=== PATIENT | female | born 1965 | race Caucasian/White ===

== ENCOUNTER 2021-02-12 07:25 | Outpatient (REF) | payer MEDICAID, SELFPAY ==
--- NOTE | ~2021-02-12 | MM_ITS ---
EXAMINATION: MM SCREENING DIGITAL BREAST TOMOSYNTHESIS, BILATERAL CLINICAL INFORMATION: Screening. Asymptomatic. The lifetime risk of breast cancer based on the Tyrer-Cuzick Model is 13%. COMPARISON: Mammography: February 07, 2020 and studies dating back to July 18, 2011 TECHNIQUE: Digital breast tomosynthesis is performed in both the craniocaudal and mediolateral oblique views along with computer-aided detection (CAD). Synthesized 2D images are generated from the tomosynthesis. Additional left cleavage view performed. FINDINGS: There are scattered areas of fibroglandular density (ACR BI-RADS breast composition Category b). There are no significant masses, abnormal calcifications, or other abnormalities. MM/MM tomosynthesis screening BI IMPRESSION: There are no significant changes from prior study. ASSESSMENT: BI-RADS 1: Negative RECOMMENDATION: Routine annual mammography screening. This patient's information was entered into a reminder system with a target due date for their next mammogram.
== END 2021-02-12 07:26 | disposition home or self-care (01) ==
LOC: HO.MAMMO 07:25
PROVIDERS: PCP Family Medicine; Visit Provider Nurse Practitioner Family
DX: Z12.31 Encounter for screening mammogram for malignant neoplasm of breast (principal)
CPT/HCPCS: 77063; 77067

== ENCOUNTER 2021-03-12 08:38 | Outpatient (REF) | payer MEDICAID, SELFPAY | END 2021-03-12 08:39 | disposition home or self-care (01) | LOC: HO.MAMMO 08:38 | PROVIDERS: Visit Provider Family Medicine | DX: Z13.89 Encounter for screening for other disorder (principal) ==

== ENCOUNTER 2021-04-05 13:22 | Outpatient (REF) | payer MEDICAID, SELFPAY ==
--- NOTE | ~2021-04-05 | MM_ITS ---
EXAMINATION: BONE DENSITOMETRY CLINICAL INDICATION: Screening for osteoporosis. COMPARISON: None (current study represents initial baseline exam). TECHNIQUE: Using a [employer] DXA System (software version: 13.1) manufactured by [email or web address], dual-energy x-ray absorptiometry was performed of the lumbar spine and left hip. The images are of good technical quality. Summary results are attached. FINDINGS: AP SPINE L1-L4: BMD 1.130 g/cm2, Z-score -0.3, T-score -0.4, normal. LEFT FEMUR, NECK: BMD 0.977 g/cm2, Z-score 0.1, T-score -0.4, normal. LEFT FEMUR, TOTAL: BMD 1.034 g/cm2, Z-score 0.4, T-score 0.2, normal. IDENTIFIED RISK FACTORS: Rheumatoid arthritis, anticonvulsants, glucocorticoids (chronic), menopause. HISTORY OF FRACTURE: None listed. MEDICATIONS: Vitamin D. MM/XR DEXA axial skeleton IMPRESSION: 1. DIAGNOSIS: Normal bone density based on the lowest T-score value of -0.4 in the femoral neck and lumbar spine applying World Health Organization criteria. 2. 10-YEAR FRACTURE RISK PREDICTION, FRAX: Major osteoporotic fracture (clinical spine, forearm, hip or shoulder) 10.4%. Hip fracture 0.4%. 3. Treatment Recommendations: NOF guidelines recommend consideration for treatment in postmenopausal women and men age 50 and older presenting with the following: -A hip or vertebral (clinical or morphometric) fracture. -T-score less than or equal to -2.5 at the femoral neck or spine after appropriate evaluation to exclude secondary causes. -Low bone mass at the hip or spine and a 10-year fracture probability by FRAX of greater than or equal to 3% for hip fracture or greater than or equal to 20% for major osteoporotic fracture based on the [place] adapted WHO algorithm. 4. Other Recommendations: All treatment decisions require clinical judgment and consideration of individual patient factors, including patient preferences, comorbidities, previous drug use, risk factors not captured in the FRAX model (e.g. frailty, falls, vitamin D deficiency, increased bone turnover, interval significant decline in bone density) and possible under or overestimation of fracture risk by FRAX. FUTURE SCAN RECOMMENDATION: People with diagnosed cases of osteoporosis or at high risk for fracture should have regular bone mineral density tests. For patients eligible for Medicare, routine testing is allowed once every 2 years. The testing frequency can be increased to one year for patients who have rapidly progressing disease, those who are receiving or discontinuing medical therapy to restore bone mass, or have additional risk factors.
== END 2021-04-05 13:23 | disposition home or self-care (01) ==
LOC: HO.MAMMO 13:22
PROVIDERS: Visit Provider Family Medicine
DX: Z13.820 Encounter for screening for osteoporosis (principal); M85.80 Other specified disorders of bone density and structure, unspecified site; E03.9 Hypothyroidism, unspecified; M05.9 Rheumatoid arthritis with rheumatoid factor, unspecified; E27.49 Other adrenocortical insufficiency; Z79.899 Other long term (current) drug therapy
CPT/HCPCS: 77080

== ENCOUNTER 2022-02-20 07:23 | Outpatient (REF) | payer MEDICAID, SELFPAY ==
--- NOTE | ~2022-02-20 | MM_ITS ---
EXAMINATION: MM SCREENING DIGITAL BREAST TOMOSYNTHESIS, BILATERAL CLINICAL INFORMATION: Screening. Asymptomatic. The lifetime risk of breast cancer based on the Tyrer-Cuzick Model is 19%. COMPARISON: Mammography: 02/12/2021, 02/07/2020, 12/14/2018 TECHNIQUE: Digital breast tomosynthesis is performed in both the craniocaudal and mediolateral oblique views along with computer-aided detection (CAD). Synthesized 2D images are generated from the tomosynthesis. FINDINGS: There are scattered areas of fibroglandular density (ACR BI-RADS breast composition Category b). There are no significant masses, abnormal calcifications, or other abnormalities. Parenchymal pattern is similar to prior exams. No developing density. No significant changes. MM/MM tomosynthesis screening BI IMPRESSION: No mammographic evidence of malignancy. ASSESSMENT: BI-RADS 1: Negative RECOMMENDATION: Routine annual mammography screening. This patient's information was entered into a reminder system with a target due date for their next mammogram.
== END 2022-02-20 07:24 | disposition home or self-care (01) ==
LOC: HO.MAMMO 07:23
PROVIDERS: Visit Provider Family Medicine
DX: Z12.31 Encounter for screening mammogram for malignant neoplasm of breast (principal)
CPT/HCPCS: 77063; 77067

== ENCOUNTER 2022-10-20 06:26 | Day surgery (SDC) | payer MEDICAID, SELFPAY ==
--- NOTE | 2022-10-17 13:29 | P.CONAN_ITS ---
Documented by User: Judith Briones NP 10/17/22 13:30 HPI - Anesthesia Eval Consult details Narrative: 57yo F for Upper Endoscopy and Colonoscopy [facility] Past Medical History Medical History (Updated 10/17/22 @ 12:06 by Teresa Massey, DEISI) Anxiety Cervical disc disease Hemorrhoids Hiatal hernia Hypercholesteremia Trigeminal neuralgia Surgical History Surgical History (Updated 10/17/22 @ 12:06 by Teresa Massey RN) H/O colonoscopy H/O dilation and curettage H/O esophagogastroduodenoscopy H/O Spinal surgery Social History Social History Patient Tobacco Use Status: Never used Tobacco Use of substances other than those prescribed or required for medical reasons: Yes Are you DNR?: No Advance Directives: No Advance Directives Information Provided: Yes Recently lost weight without trying: No Nutrition Risks: No Nutritional Risk Meds Allergies Allergy/AdvReac Type Severity Reaction Status Date / Time Seasonal Allergies Allergy Unknown Verified 10/17/22 12:06 Home Medications Medication Instructions Recorded Confirmed Last Taken Type atorvastatin 10 mg tablet 1 tab PO DAILY 10/17/22 10/17/22 Unknown History carbamazepine 100 mg 2 cap PO BID 10/17/22 10/17/22 Unknown History capsule,extended release [id number] cetirizine 10 mg tablet 1 tab PO DAILY 10/17/22 10/17/22 Unknown History cholecalciferol (vitamin D3) 50 1 tab PO DAILY 10/17/22 10/17/22 Unknown History mcg (2,000 unit) tablet levothyroxine 75 mcg tablet 1 tab PO DAILY 10/17/22 10/17/22 Unknown History lidocaine 5 % topical patch 1 patch topical DIRECTED 10/17/22 10/17/22 Unknown History omeprazole 20 mg capsule,delayed 1 cap PO DAILY 10/17/22 10/17/22 Unknown History release oxycodone-acetaminophen 5 mg-325 1 tab PO QID 10/17/22 10/17/22 Unknown History mg tablet Exam Exam Date and Time: October 17, [id number] Assessment and Plan Assessment Anesthesia Assessment: Chart Reviewed Documented by User: Otoniel Gutiérrez MD 10/20/22 07:30 [facility] Past Medical History Medical History (Updated 10/17/22 @ 12:06 by Teresa Massey RN) Anxiety Cervical disc disease Hemorrhoids Hiatal hernia Hypercholesteremia Trigeminal neuralgia Family History Family history of problems with anesthesia: No Surgical History Surgical History (Updated 10/17/22 @ 12:06 by Teresa Massey RN) H/O colonoscopy H/O dilation and curettage H/O esophagogastroduodenoscopy H/O Spinal surgery History of Problems with Anesthesia: No Social History Social History Patient Tobacco Use Status: Never used Tobacco Use of substances other than those prescribed or required for medical reasons: Yes Are you DNR?: No Advance Directives: No Advance Directives Information Provided: Yes Recently lost weight without trying: No Nutrition Risks: No Nutritional Risk Meds Allergies Allergy/AdvReac Type Severity Reaction Status Date / Time Seasonal Allergies Allergy Unknown Verified 10/17/22 12:06 Home Medications Medication Instructions Recorded Confirmed Last Taken Type atorvastatin 10 mg tablet 1 tab PO DAILY 10/17/22 10/17/22 Unknown History carbamazepine 100 mg 2 cap PO BID 10/17/22 10/17/22 Unknown History capsule,extended release [id number] cetirizine 10 mg tablet 1 tab PO DAILY 10/17/22 10/17/22 Unknown History cholecalciferol (vitamin D3) 50 1 tab PO DAILY 10/17/22 10/17/22 Unknown History mcg (2,000 unit) tablet levothyroxine 75 mcg tablet 1 tab PO DAILY 10/17/22 10/17/22 Unknown History lidocaine 5 % topical patch 1 patch topical DIRECTED 10/17/22 10/17/22 Unknown History omeprazole 20 mg capsule,delayed 1 cap PO DAILY 10/17/22 10/17/22 Unknown History release oxycodone-acetaminophen 5 mg-325 1 tab PO QID 10/17/22 10/17/22 Unknown History mg tablet Exam Airway Mallampati Class: II TM Dist: >3cm Neck ROM: Full Loose/Missing/Broken Teeth: No Heart: rrr Lungs: cta Assessment and Plan Final Anesthetic Review Family History of Problems with Anesthesia: No History of Problems with Anesthesia: No NPO: Yes ASA Class: II Final Preanesthetic Review: No Changes in Pt Med Stat, Meds/Allgs Chart Reviewed, Consent Obtained/Reviewed and Anes Risks/Benef Reviewed Patient Risk: Intermediate Procedure Risk: Intermediate Anesthetic Plan Anesthetic Plan: MAC: Disposition: Standard PACU
[2022-10-20 06:39] VITALS: BMI 28.0
[2022-10-20 06:46] VITALS: BP 129/60; PULSE 84; RESP 16; TEMP 36.4; O2SAT 96
[2022-10-20] MEDS: Lactated Ringers 1,000 ML 100 ML IVCONT (07:00)
--- NOTE | 2022-10-20 08:41 | PM.OP ---
Brief Operative Note Date of Service: 10/20/22 Pre-op diagnosis: Screening, GERD Post-op diagnosis: other (Hiatal hernia, Diverticulosis) Procedure: EGD with biopsies, Colonoscopy to the cecum and TI Surgeon: Kendall Vo Anesthesia: MAC Was an Child Day Care Provider used for this Procedure?: No Estimated blood loss (mL): 2.0 Pathology: other (A. EG Junction at 35cm) Condition: stable Disposition: PACU
[2022-10-20 08:43] VITALS: BP 120/76; PULSE 95; RESP 16; TEMP 36.2; O2SAT 96
[2022-10-20 08:56] VITALS: BP 128/71; PULSE 79; RESP 18; TEMP 36.2; O2SAT 96
--- NOTE | 2022-10-20 10:51 | OP_ITS ---
SURGEON: Kendall Vo MD INDICATIONS: The patient presents for evaluation of gastroesophageal reflux, family history of colon cancer, and colorectal cancer screening. Full consent has been obtained from her for this, including risks of bleeding and perforation. PREOPERATIVE DIAGNOSIS: POSTOPERATIVE DIAGNOSIS: PROCEDURE PERFORMED: Esophagogastroduodenoscopy with biopsies and colonoscopy to the cecum and terminal ileum. ESTIMATED BLOOD LOSS: COMPLICATIONS: ANESTHESIA: Monitored anesthesia care. ASSISTANTS: SPECIMENS: PREOPERATIVE DIAGNOSES: Gastroesophageal reflux, colorectal cancer screening, family history of colon cancer. POSTOPERATIVE DIAGNOSES: Gastroesophageal reflux, colorectal cancer screening, family history of colon cancer, small hiatal hernia, diverticulosis and internal hemorrhoids. DESCRIPTION OF PROCEDURE: The patient was placed in the left lateral decubitus position. The Olympus video gastroscope was passed into the posterior oropharynx and upper esophagus under direct vision. The scope was passed slowly to the distal esophagus. The gastroesophageal junction appeared at 35 cm. There was some very minimal irregularity consistent with reflux, but no evidence of esophagitis nor any definitive evidence of Alvarez's mucosa. There was a small hiatal hernia. The scope was advanced to the pylorus and the duodenum was cannulated to the descending portion. The duodenum, including the bulb, appeared normal without mass or ulceration. The scope was withdrawn back into the stomach. The gastric antrum and body appeared normal with good peristalsis. The scope was retroflexed visualizing the proximal stomach carefully, which appeared normal, without any sign of mass or ulceration. The scope was straightened and withdrawn back in the esophagus. Biopsies were obtained at the EG junction at 35 cm. Proximal to that the esophageal mucosa appeared normal. The scope was withdrawn from the patient. She was turned around for the colonoscopy. The digital rectal exam revealed some small external hemorrhoids. The Olympus video pediatric colonoscope was entered into the rectum and advanced easily into the cecum. Once in the cecum, I did identify normal-appearing cecal pouch with appendiceal orifice and a normal-appearing ileocecal valve. The terminal ileum was cannulated and appeared normal. The scope was withdrawn back in the colon. The entire cecum and ileocecal valve appeared normal. The scope was slowly withdrawn assessing all mucosal surfaces carefully. Preparation was excellent. I did not visualize any sign of polyps, colitis nor angiodysplasia. There were occasional diverticulae in the ascending colon and sigmoid colon. In the rectum, the scope was retroflexed visualizing internal hemorrhoids, but no other pathology. The rectal mucosa appeared normal. The scope was straightened out and withdrawn from the patient. She tolerated the procedure well and was returned to the recovery area in stable condition. IMPRESSION: 1. Small hiatal hernia, gastroesophageal reflux. 2. Diverticulosis. 3. Internal and external hemorrhoids. PLAN: The results of the pathology will be checked. She was advised to continue her daily omeprazole for symptomatic relief of reflux. I would recommend a repeat colonoscopy in five years for further screening given her significant family history of colorectal cancer. She was advised to continue her MiraLAX at least once or twice a day to avoid constipation as she does report that is working well for her at the present time. She would see me otherwise on a p.r.n. basis. MD PEGGY Baker/PERCY / [id number] MTDD
== END 2022-10-20 09:25 | disposition home or self-care (01) ==
PROVIDERS: PCP Family Medicine; Visit Provider Internal Medicine
PROC: (CPT 45378; principal; 2022-10-20 07:30)
DX: Z12.11 Encounter for screening for malignant neoplasm of colon (principal); Z80.0 Family history of malignant neoplasm of digestive organs; K57.30 Diverticulosis of large intestine without perforation or abscess without bleeding; K64.8 Other hemorrhoids; K59.00 Constipation, unspecified; K64.4 Residual hemorrhoidal skin tags; K21.9 Gastro-esophageal reflux disease without esophagitis; K44.9 Diaphragmatic hernia without obstruction or gangrene; F41.1 Generalized anxiety disorder; Z79.899 Other long term (current) drug therapy
CPT/HCPCS: 45378; 43239; 88305

== ENCOUNTER 2023-03-06 09:48 | Outpatient (REF) | payer OTHER, SELFPAY ==
--- NOTE | ~2023-03-06 | MM_ITS ---
EXAMINATION: MM SCREENING DIGITAL BREAST TOMOSYNTHESIS, BILATERAL CLINICAL INFORMATION: Screening. Asymptomatic. The lifetime risk of breast cancer based on the Tyrer-Cuzick Model is 17%. COMPARISON: Mammography: This study is compared with prior exams dating back to TECHNIQUE: Digital breast tomosynthesis is performed in both the craniocaudal and mediolateral oblique views along with computer-aided detection (CAD). Synthesized 2D images are generated from the tomosynthesis. FINDINGS: There are scattered areas of fibroglandular density (ACR BI-RADS breast composition Category b). There are no significant masses, abnormal calcifications, or other abnormalities. MM/MM tomosynthesis screening BI IMPRESSION: No mammographic evidence of malignancy. ASSESSMENT: BI-RADS BI-RADS 1 - Negative RECOMMENDATION: Routine annual mammography screening. 1 year F/U This examination should not preclude the clinical evaluation of a suspicious palpable abnormality. This patient's information was entered into a reminder system with a target due date for their next mammogram.
== END 2023-03-06 09:49 | disposition home or self-care (01) ==
LOC: HO.MAMMO 09:48
PROVIDERS: PCP Family Medicine; Visit Provider Family Medicine
DX: Z12.31 Encounter for screening mammogram for malignant neoplasm of breast (principal)
CPT/HCPCS: 77063; 77067

== ENCOUNTER → 2023-03-06 10:00 | Outpatient (BNV) | payer OTHER, SELFPAY | PROVIDERS: PCP Family Medicine; Visit Provider Radiology Diagnostic Radiology | DX: Z12.31 Encounter for screening mammogram for malignant neoplasm of breast (principal) | CPT/HCPCS: 77063; 77067 ==

== ENCOUNTER 2024-03-17 07:18 | Outpatient (REF) | payer OTHER, SELFPAY ==
--- NOTE | ~2024-03-17 | MM_ITS ---
EXAMINATION: MM SCREENING DIGITAL BREAST TOMOSYNTHESIS, BILATERAL CLINICAL INFORMATION: Screening. Asymptomatic. COMPARISON: Mammography: 03/06/2023, 02/20/2022, 02/12/2021, 02/07/2020, 12/14/2018 TECHNIQUE: Digital breast tomosynthesis is performed in both the craniocaudal and mediolateral oblique views along with computer-aided detection (CAD). Synthesized 2D images are generated from the tomosynthesis. An added left CC view was also obtained. FINDINGS: There are scattered areas of fibroglandular density (ACR BI-RADS breast composition Category b). There are no suspicious masses, suspicious grouped calcifications, or areas of architectural distortion in either breast. The parenchymal pattern is stable from prior exams. There is no skin or axillary abnormality. There has been no change. MM/MM tomosynthesis screening BI IMPRESSION: No mammographic evidence of malignancy. No significant interval change. ASSESSMENT: BI-RADS BI-RADS 1 - Negative RECOMMENDATION: Routine annual mammography screening. 1 year F/U This examination should not preclude the clinical evaluation of a suspicious palpable abnormality. This patient's information was entered into a reminder system with a target due date for their next mammogram.
== END 2024-03-17 07:19 | disposition home or self-care (01) ==
LOC: HO.MAMMO 07:18
PROVIDERS: PCP Nurse Practitioner Family; Visit Provider Nurse Practitioner Family
DX: Z12.31 Encounter for screening mammogram for malignant neoplasm of breast (principal)
CPT/HCPCS: 77063; 77067

== ENCOUNTER → 2024-03-17 07:30 | Outpatient (BNV) | payer OTHER, SELFPAY | PROVIDERS: PCP Nurse Practitioner Family; Visit Provider Radiology Diagnostic Radiology | DX: Z12.31 Encounter for screening mammogram for malignant neoplasm of breast (principal) | CPT/HCPCS: 77063; 77067 ==

== ENCOUNTER 2025-01-20 16:47 | Emergency (ER) | payer OTHER, SELFPAY ==
--- NOTE | ~2025-01-20 | US_ITS ---
CLINICAL HISTORY: epigastric pain to back --- Additional Notes or Special Instructions: gb, ducts, li fiona, pancreas US ABDOMEN LIMITED Comparison: None Findings: The pancreas is obscured by bowel gas. The right kidney, IVC and aorta were not evaluated. The liver is normal in size and echotexture. There is no intrahepatic bile duct dilatation. The common bile duct measures 2.5 mm. The gallbladder is normal. There is no sonographic Roche sign. The main portal vein is antegrade. No ascites. IMPRESSION: 1. No cholelithiasis or acute cholecystitis. 2. No significant biliary ductal dilatation. This document has been electronically signed by: Hanna Anaya DO on 01/20/2025 18:22:54
--- NOTE | 2025-01-20 16:50 | ECG_ITS ---
Test Reason : CHEST PAIN Blood Pressure : */* mmHG Vent. Rate : 67 BPM Atrial Rate : 67 BPM P-R Int : 114 ms QRS Dur : 78 ms QT Int : 392 ms P-R-T Axes : 33 11 35 degrees QTcB Int : 414 ms Normal sinus rhythm Normal ECG No previous ECGs available Referred By: Generic ED Physician Electronically Signed By: BRISA HACKETT
[2025-01-20 17:06] VITALS: BP 153/82; PULSE 80; RESP 16; TEMP 36; O2SAT 96; BMI 29.2
--- NOTE | 2025-01-20 17:08 | ED.ABDPAIN ---
HPI - Abdominal Pain General Chief Complaint: Abdominal Pain Stated Complaint: Dr kathleen sent over for chest pain since thursday Time Seen by Provider: 01/21/25 00:10 Source: patient Mode of arrival: ambulatory Limitations: no limitations History of Present Illness ED Provider: HPI narrative: Patient's history of GERD, hiatal hernia and diverticulosis last endoscopy done was 11/06 patient is on Prilosec 20 mg since then comes here for sharp pain in the epigastric area for last few days sent by bleach boiler filler for ultrasound which was negative for gallstones Related Data Home Medications ?Medication ?Instructions ?Recorded ?Confirmed atorvastatin 10 mg tablet 1 tab PO DAILY 10/17/22 10/17/22 carbamazepine 100 mg 2 cap PO BID 10/17/22 10/17/22 capsule,extended release [id number] cetirizine 10 mg tablet 1 tab PO DAILY 10/17/22 10/17/22 cholecalciferol (vitamin D3) 50 1 tab PO DAILY 10/17/22 10/17/22 mcg (2,000 unit) tablet levothyroxine 75 mcg tablet 1 tab PO DAILY 10/17/22 10/17/22 lidocaine 5 % topical patch 1 patch topical DIRECTED 10/17/22 10/17/22 omeprazole 20 mg capsule,delayed 1 cap PO DAILY 10/17/22 10/17/22 release oxycodone-acetaminophen 5 mg-325 1 tab PO QID 10/17/22 10/17/22 mg tablet Previous Rx's ?Medication ?Instructions ?Recorded famotidine 40 mg tablet (Pepcid) 40 mg PO BEDTIME #30 tabs 01/21/25 omeprazole 40 mg capsule,delayed 40 mg PO DAILY #30 caps 01/21/25 release sucralfate 1 gram tablet 1 g PO TID #90 tabs 01/21/25 Allergies Allergy/AdvReac Type Severity Reaction Status Date / Time Seasonal Allergies Allergy Unknown Verified 01/20/25 17:09 Review of Systems Review of Systems Yes all other systems are reviewed and are negative PMFSH Past Medical History Medical History Trigeminal neuralgia Hypercholesteremia Hemorrhoids Hiatal hernia Cervical disc disease Anxiety Surgical History H/O Spinal surgery H/O dilation and curettage H/O esophagogastroduodenoscopy H/O colonoscopy Social History Social History Patient Tobacco Use Status: Never used Tobacco Advance Directives: No Advance Directives Information Provided: No Do you have a plan to hurt others: No Plan Physical Exam ED Vital Signs: Vital Signs - 24 hr 01/20/25 17:06 Temperature 96.8 F Pulse Rate 80 Respiratory Rate 16 Blood Pressure 153/82 H Pulse Oximetry 96 Oxygen Delivery Method Room Air BMI result Body Mass Index 29.2 Appearance: Alert. Oriented X3. No acute distress. Eyes: No pallor or icterus ENT: Pharynx normal. Oral Mucosa moist Neck: Normal inspection. Neck supple. CVS: Normal heart rate and rhythm. Pulses normal. Respiratory: No respiratory distress. Equal air entry bilateral, no wheezing/rales/rhonchi Abdomen: Soft and tender at the epigastric area Bowel sounds are present, no mass palpable, no CVA tenderness Skin: Skin warm and dry. Normal skin color. Normal skin turgor. Extremities: No lower extremity edema. No calf tenderness Neuro: Oriented X 3. No motor deficit. Course Course Course Narrative: 01/20/25 1708 ALBER Casiano This is a Rapid Medical Examination (RME) performed by Harjit Santana PA-C in triage. Full HPI, ROS, assessment and treatment plan per primary provider in the Main ED. Hx: 59 yo F here for eval of epigastric abdominal pain radiating to back intermittent, worsening x1 week. feels like someone is stabbing her. /10. worse w/ eating. no abd surgeries. contacted dr. castaneda' office, advised to come to ED. PE/vitals: +blankenship sign. Plan: labs, US Medical Decision Making Medical Decision Making MDM Narrative: Patient with small hiatal hernia and gastritis on Prilosec 20 mg comes here with a epigastric pain ultrasound was done which was negative for gallstones lipase normal for pancreatitis. Will increase the dose of Prilosec to 40 mg will add Pepcid and sucralfate advised to follow with bleach boiler filler Lab Data MDM Lab Attestation statement: I reviewed the patient's lab results. 01/20/25 17:28 01/20/25 17:28 Labs: Lab Results 01/20/25 Range/Units 17:28 WBC 9.9 (4.8-10.8) X10*3/uL RBC 4.90 (4.20-5.50) X10*6/uL Hgb 14.9 (12.0-16.0) g/dl Hct 42.3 (37.0-47.0) % MCV 86.3 (80.0-98.0) fL MCH 30.4 (27.0-33.0) pg MCHC 35.2 H (31.0-35.0) g/dl RDW 12.2 (11.0-16.0) % Plt Count 249 (160-400) X10*3/uL MPV 9.7 (9.4-12.3) fL Immature Gran % (Auto) 0.3 (0.0-0.4) % Neut % (Auto) 52.3 (45-73) % Lymph % (Auto) 22.9 (20-40) % Haywood % (Auto) 6.6 (2-11) % Eos % (Auto) 17.2 H (0-4) % Baso % (Auto) 0.7 (0-2) % Lymph # (Auto) 2.3 (1.2-4.9) X10*3/uL Haywood # (Auto) 0.7 (0.1-1.2) X10*3/uL Eos # (Auto) 1.7 H (0.0-0.4) X10*3/uL Baso # (Auto) 0.1 (0.0-0.2) X10*3/uL Abs Immat Gran (auto) 0.03 (0.00-0.03) X10*3/uL Absolute Neuts (auto) 5.2 (2.0-8.3) x10*3/uL Absolute Nucleated RBC 0.000 (0.0-0.012) X10*3/uL Nucleated RBC % (auto) 0.0 (0.0-0.2) /100WBC Sodium 141 (135-145) mmol/L Potassium 3.9 (3.3-5.1) mmol/L Chloride 104 (96-108) mmol/L Carbon Dioxide 24 (22-29) mmol/L Anion Gap 17 (12-20) BUN 16 (9-16) mg/dL Creatinine 0.67 (0.5-1.4) mg/dL Estim Creat Clear Calc 98.9 Estimated GFR > 60 Random Glucose 122 H (60-115) mg/dL Calcium 10.3 H (8.4-10.2) mg/dL Magnesium 1.8 (1.6-2.6) mg/dL Total Bilirubin 0.4 (0.0-1.0) mg/dL AST 34 H (5-31) U/L ALT 25 (0-31) U/L Alkaline Phosphatase 112 (39-117) U/L Troponin I High Sens < 2.7 (<3.5-17.0) ng/L Total Protein 7.7 (6.5-8.0) g/dL Albumin 5.0 (3.5-5.0) g/dL Lipase 40 (8-78) U/L Independent Interpretation I performed an independent interpretation of an: EKG Interpretation: Normal sinus rhythm heart rate 67 beats per minute normal intervals normal axis no acute ST-T changes no acute ischemia Discharge Plan Discharge Clinical Impression: GERD (gastroesophageal reflux disease) Patient Disposition: Home, Self-Care Instructions: GERD (Gastroesophageal Reflux Disease) (ED) Additional Instructions: Avoid fried foods Increase the dose of omeprazole to 40 mg daily Also will add Pepcid 40 mg daily And take sucralfate 1 tablet 3 times a day before meals Follow up with bleach boiler filler for further evaluation Ultrasound of the abdomen done which is negative for gallstones also blood workup is negative for pancreatitis Prescriptions: New sucralfate 1 gram tablet 1 g PO TID Qty: 90 0RF famotidine [Pepcid] 40 mg tablet 40 mg PO BEDTIME Qty: 30 0RF omeprazole 40 mg capsule,delayed release(DR/EC) 40 mg PO DAILY Qty: 30 0RF No Action cetirizine 10 mg tablet 1 tab PO DAILY atorvastatin 10 mg tablet 1 tab PO DAILY levothyroxine 75 mcg tablet 1 tab PO DAILY oxycodone-acetaminophen 5-325 mg tablet 1 tab PO QID lidocaine 5 % adhesive patch,medicated 1 patch topical DIRECTED omeprazole 20 mg capsule,delayed release(DR/EC) 1 cap PO DAILY carbamazepine 100 mg capsule, ER multiphase 12 hr 2 cap PO BID cholecalciferol (vitamin D3) 50 mcg (2,000 unit) tablet 1 tab PO DAILY Print Language: Bruneian
[2025-01-20 17:32] LABS: MANUAL DIFF FLAG NO
[2025-01-20 17:33] LABS: Basophils Absolute Auto 0.1 X10*3/uL (0.0-0.2); Basophils Percent Auto 0.7 % (0-2); Eosinophils Absolute Auto 1.7 X10*3/uL (0.0-0.4); Eosinophils Percent Auto 17.2 % (0-4); Hematocrit 42.3 % (37.0-47.0); Hemoglobin 14.9 g/dl (12.0-16.0); Imm Gran Abs Auto 0.03 X10*3/uL (0.00-0.03); Imm Gran Pct Auto 0.3 % (0.0-0.4); Lymphocytes Absolute Auto 2.3 X10*3/uL (1.2-4.9); Lymphocytes Percent Auto 22.9 % (20-40); Mean Corpuscular HGB Conc 35.2 g/dl (31.0-35.0); Mean Corpuscular Hemoglobin 30.4 pg (27.0-33.0); Mean Corpuscular Volume 86.3 fL (80.0-98.0); Mean Platelet Volume 9.7 fL (9.4-12.3); Monocytes Absolute Auto 0.7 X10*3/uL (0.1-1.2); Monocytes Percent Auto 6.6 % (2-11); Neutrophils Absolute Auto 5.2 x10*3/uL (2.0-8.3); Neutrophils Percent Auto 52.3 % (45-73); Platelet Count 249 X10*3/uL (160-400); Red Cell Distribution Width 12.2 % (11.0-16.0); White Blood Count 9.9 X10*3/uL (4.8-10.8)
--- OUTSIDE RECORDS SUMMARY | 2025-01-20 17:36 | XMS_ITS | Continuity of Care Document ---
Author Organization [facility] Address [address] [place] [address]- Care Team Providers Care Sales Route Driver Name Role Phone Rocco TRAYLOR, Marely Todd Primary Care Physici an Encounter [facility] Date(s): 12/16/24 - 01/15/25 [facility] [address], [place] [id number] Encounter Type: Triage Allergies, Adverse Reactions, Alerts No Known Allergies Immunizations Given and Recorded Vaccine Date Status Refusal Reason influenza virus vaccine, inactivated 05/30/23 Benja rded influenza virus vaccine, inactivated 07/30/21 Benja rded influenza virus vaccine, inactivated 06/08/20 Give n influenza virus vaccine, inactivated 06/01/19 Give n influenza virus vaccine, inactivated 05/17/18 Give n influenza virus vaccine, inactivated 1 06/04/17 Gi fannie influenza virus vaccine, inactivated 06/26/16 Give n influenza virus vaccine, inactivated 2 06/02/15 Re corded influenza virus vaccine, inactivated 3 06/13/11 Gi fannie tetanus/diphtheria/pertussis, acel(Tdap) 04/24/23 Given tetanus/diphtheria/pertussis, acel(Tdap) 06/13/11 Given SARS-CoV-2 (COVID-19) mRNA-1273 vaccine 07/30/21 R ecorded SARS-CoV-2 (COVID-19) mRNA-1273 vaccine 01/01/21 R ecorded SARS-CoV-2 (COVID-19) mRNA-1273 vaccine 12/05/20 R ecorded 1Result Comment: [06/04/2017] [facility] [id number] 2Result Comment: [06/07/2015] [facility] 3Admin Note: FLULAVAL Medications acetaminophen-oxyCODONE 325 mg-5 mg oral tablet 1, tablet, By Mouth, 3 times a day, PRN, DNF 01/04/2025, # 84 tablet, Refills 0, Tot. Refills 0, Maintenance, Pain , Severe, 12/27/24 2:28:00 PM EDT, Route to Pharmacy Electronically, [facility]/pharmacy #[id number] Tablet, Partial fill upon patient request if the prescription is for a schedule II opioid drug., 168, cm, 11/16/24 6:42:00 EDT, Height, 85.4, kg, 11/16/24 6:42:00 EDT, Dry Weight Start Date: 12/27/24 Stop Date: 01/24/25 Status: Ordered Quantity: 84.0 Unit: tablet Repeat number: 1 Indication: Dorsalgia, unspecified atorvastatin 40 mg oral tablet 0.5 tablet = 20 mg, By Mouth, Daily, (20mg), # 90 tablet, 0 Refills, Maintenance, 09/14/24 9:01:00 AM EST, Tablet, [facility], Partial fill upon patient request if the prescription is for a schedule II opioid drug., 168, cm, 05/16/24 15:52:00 EDT, Height, 88.4, kg, 04/11/24 12:49:0 0 EDT, Dry Weight Start Date: 09/14/24 Status: Ordered Quantity: 90.0 Unit: tablet Repeat number: 1 back support brace dx: chronic upper back and neck pain back support brace dx: chronic upper back and neck pain, See Instructions, # 1 each, Refills 0, Tot. Refills 0, Maintenance, wear daily as tolerated to relieve pain, 12/28/15 10:14:25 AM EDT, Compound Start Date: 12/28/15 Status: Ordered Quantity: 1.0 Unit: each Repeat number: 1 carBAMazepine 100 mg oral capsule, extended release 1 capsule = 100 mg, By Mouth, Daily, # 90 capsule, 0 Refills, Maintenance, 07/13/23 12:00:00 PM EST, [id number], 165, cm, 06/09/23 10:32:00 EDT, Height Start Date: 07/13/23 Stop Date: 01/18/25 Status: Ordered Quantity: 90.0 Unit: capsule Repeat number: 1 duloxetine 20 mg oral enteric coated capsule 2 capsule = 40 mg, By Mouth, Daily, # 60 capsule, 0 Refills, Maintenance, 10/20/24 10:48:00 AM EST, EC Capsule, [facility]/pharmacy #[id number], Partial fill upon patient request if the prescription is for a schedule II opioid drug., 168, cm, 09/23/24 15:41:00 EST, Height, 88.4, kg, 04/11/24 12:49:00 EDT, Dry Weight Start Date: 10/20/24 Stop Date: 11/19/24 Status: Ordered Quantity: 60.0 Unit: capsule Repeat number: 1 Indication: Trigeminal neuralgia levothyroxine 75 mcg (0.075 mg) oral tablet 1 tablet, By Mouth, Daily, # 90 tablet, 1 Refills, Maintenance, 06/24/24 1:52:00 PM EST, [facility], 168, cm, 05/16/24 15:52:00 EDT, Height, 88.4, kg, 04/11/24 12:49:00 EDT, Dry Weight Start Date: 06/24/24 Status: Ordered Quantity: 90.0 Unit: tablet Repeat number: 2 lidocaine 5% topical film 30 each, 0 Refill(s), APPLY 1 PATCH TOPICALLY DAILY NEEDED FOR PAIN REMOVE AFTER 12 HOURS, 0 Refills, 06/24/24 5:41:00 PM EST, Partial fill upon patient request if the prescription is for a schedule II opioid drug. Start Date: 06/24/24 Status: Ordered Repeat number: 1 lidocaine 5% topical film 1 patch, Topically, Daily, PRN Pain , Mild, remove after 12 hours, # 13 each, 0 Refills, Maintenance, 06/24/24 5:42:00 PM EST, Film, [facility]/pharmacy #[id number], Partial fill upon patient request if the prescription is for a schedule II opioid drug., 1 patch Topically Daily,PRN:Pain , Mild,Instr:remove after12 hours, 168, cm, 05/16/24 15:52:00 EDT, Height, 88.4, kg, 04/11/24 12:49:00 EDT, Dry Weight Start Date: 06/24/24 Status: Ordered Quantity: 13.0 Unit: each Repeat number: 1 LORazepam 0.5 mg oral tablet 1 tablet = 0.5 mg, By Mouth, 2 times a day, PRN as needed for anxiety, # 2 tablet, 0 Refills, Maintenance, 11/22/24 12:21:00 PM EDT, Tablet, [facility]/pharmacy #[id number], Partial fill upon patient request if theprescription is for a schedule II opioid drug., 168, cm, 11/16/24 6:42:00 EDT, Height, 85.4, kg, 11/16/24 6:42:00 EDT, Dry Weight Start Date: 11/22/24 Status: Ordered Quantity: 2.0 Unit: tablet Repeat number: 1 omeprazole 20 mg oral enteric coated capsule 1 capsule, By Mouth, Daily, # 90 capsule, 1 Refills, Maintenance, 11/29/24 2:26:00 PM EDT, [facility], 168, cm, 11/16/24 6:42:00 EDT, Height, 85.4, kg, 11/16/24 6:42:00 EDT, Dry Weight Start Date: 11/29/24 Status: Ordered Quantity: 90.0 Unit: capsule Repeat number: 2 Splint See Instructions, # 1 pair, Maintenance, B wrist splints dx: carpal tunnel, 12/28/15 2:45:29 PM EDT,fax: [phone], Compound Start Date: 12/28/15 Status: Ordered Quantity: 1.0 Unit: pair Repeat number: 1 Vitamin D3 2000 intl units oral tablet 1 tablet, By Mouth, Daily, WITH FOOD., # 90 tablet, 1 Refills, Maintenance, 12/27/24 8:44:00 AM EDT,[facility], 168, cm, 11/16/24 6:42:00 EDT, Height, 85.4, kg, 11/16/24 6:42:00 EDT, Dry Weight Start Date: 12/27/24 Status: Ordered Quantity: 90.0 Unit: tablet Repeat number: 2 Problem List Condition Confirmation Course Effective Dates Status H ealth Status Informant JOSE positive Confirmed Active Chronic constipation Confirmed Active CLBP - Chronic low back pain Confirmed Active Family history of cancer of colon Confirmed Active Herpes genitalis Confirmed Active Hx of retinal detachment Confirmed Active 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 Active Hyperlipidemia Confirmed Active Hypothyroidism (?post surgical) Confirmed Active Insomnia Confirmed Active Anxiety and depression Confirmed Active Obese class I Confirmed Active Obstructive sleep apnea on CPAP Confirmed Active Fibromatosis, plantar Confirmed Active Prolapsed cervical intervertebral disc Confirmed Active Seasonal allergies Confirmed Active Trigeminal neuralgia Confirmed Active Social History Social History Type Response Smoking Status Never smoker entered on: 10/21/13 Sex Sex Representation Female (finding) Patient Care team information Care Team Personnel Name: Vanessa Schulte RN Position: [facility] ED RN W/OE and Tasks Member Role: Primary Care Nurse Name: Marely Valiente NP Position: [facility] PCO Associate Professional Member Role: PCP Address: [address] [place] [address] Telecom: Care Team Related Persons Name: NBA VAZQUEZ Name: JUANITA DOTSON Name: NBA DOTSON Insurance Providers Guarantor name: LASHELL DOTSON Health Plan Information #: 1 Payer: [employer] PPO MVP Member Number: NA Policy Number: NA Group Number: NA Health Plan Information #: 2 Payer: [employer] CARE LINK Member Number: NA Policy Number: NA Group Number: NA
[2025-01-20 17:52] LABS: Alanine Aminotransferase 25 U/L (0-31); Anion Gap 17 (12-20); Aspartate Amino Transferase 34 U/L (5-31); Bilirubin Total 0.4 mg/dL (0.0-1.0); Blood Urea Nitrogen 16 mg/dL (9-16); Calcium 10.3 mg/dL (8.4-10.2); Carbon Dioxide 24 mmol/L (22-29); Chloride 104 mmol/L (96-108); Creatinine Clr Calc Pharmacy 98.9; Estimated Glomerular Filt Rate > 60; Glucose Random 122 mg/dL (60-115); Lipase 40 U/L (8-78); Magnesium 1.8 mg/dL (1.6-2.6); Potassium 3.9 mmol/L (3.3-5.1); Sodium 141 mmol/L (135-145); Total Protein 7.7 g/dL (6.5-8.0)
[2025-01-20 18:06] LABS: Troponin-I High Sensitivity < 2.7 ng/L (<3.5-17.0)
[2025-01-20 18:45] LABS: Alkaline Phosphatase 112 U/L (39-117)
--- NOTE | 2025-01-21 00:05 | PC.NURSE ---
patients approached nurses stating speaking loudly expressing frustration about wait time. pt was brought to [id number] 18 minutes prior. pt and keep speaking over this RN when attempting to answer questions/explain plan, perfume compounder notified and speaking to patient and at bedside right now.
--- NOTE | 2025-01-21 00:09 | PC.NURSE ---
patcher helper to bedside to speak with patient and bedside visitor/. approached nurses station, loudly requesting to know what they are waiting for as the patient has been waiting hours, had all of her stuff completed at 1800 and has not been seen yet. Pt reports that she was sent over by MD. Vo for abdominal pain and not understanding why she was brought back into a bui bed and hasn't been seen yet, asked if she would be seen once my insurance runs out , adding that this hospital has gone downhill and that it's quiet . This RN attempted to provide information regarding the bedding process and use of monitored beds, how the time it takes for a provider to see them is unknown and out of direct care staffer's control although they are working as hard as they can. The pt was given a face mask to assist with photosensitivity as she is reporting the increased stress is making her trigeminal neuralgia worse and making her sensitive to the lights. Pt awaiting primary eval by
[2025-01-21] MEDS: Magnesium Hydrox/Alum Hydrox 30 ML ORAL.SUSP PO (00:25)
[2025-01-21] MEDS: Lidocaine HCl Viscous 2 % 15 ML SOLUTION MUCOUS MEM (00:25)
[2025-01-21 00:28] VITALS: BP 141/83; PULSE 88; RESP 16; TEMP 36.6; O2SAT 98
[2025-01-21 00:30] VITALS: BP 141/83; PULSE 88; RESP 16; TEMP 36.6; O2SAT 98
== END 2025-01-21 00:30 | disposition home or self-care (01) ==
PROVIDERS: Physician Assistant Medical; Emergency Provider Internal Medicine
DX: K21.9 Gastro-esophageal reflux disease without esophagitis (principal); R10.2 Pelvic and perineal pain; R07.89 Other chest pain; R10.13 Epigastric pain; Z79.899 Other long term (current) drug therapy
CPT/HCPCS: 36415; 76705; 80053; 83690; 83735; 84484; 85025; 93005; 99284; 99285

== ENCOUNTER → 2025-01-20 16:50 | Outpatient (BNV) | payer OTHER, SELFPAY | PROVIDERS: Emergency Provider Internal Medicine; Visit Provider Internal Medicine | DX: R10.13 Epigastric pain (principal) | CPT/HCPCS: 93010 ==

== ENCOUNTER → 2025-01-20 17:09 | Outpatient (BNV) | payer OTHER, SELFPAY | PROVIDERS: Visit Provider Radiology Diagnostic Radiology | DX: R10.13 Epigastric pain (principal) | CPT/HCPCS: 76705 ==

== ENCOUNTER 2025-01-23 10:30 | Emergency (ER) | payer OTHER, SELFPAY ==
--- NOTE | ~2025-01-23 | CT_ITS ---
EXAMINATION: CT ABDOMEN AND PELVIS WITH CONTRAST CLINICAL INFORMATION: Abdominal pain and bloating x1 week. COMPARISON: None available. TECHNIQUE: Multidetector volumetric images were obtained from the superior aspect of the liver through the pubic symphysis following administration 85 mL of Omnipaque 350 intravenous contrast. Sagittal and coronal reformatted images were obtained on the technologist's workstation. Oral contrast: No This CT examination was performed using dose optimization techniques as appropriate, variously including the following: *Automated exposure control *Adjustment of mA and/or kV according to patient size (this includes techniques or standardized protocols for targeted exams where dose is matched to indication/reason for exam; i.e. extremities or head) *Use of iterative reconstruction technique FINDINGS: LUNG BASES: The visualized lung bases are unremarkable. LIVER, GALLBLADDER, AND BILIARY TREE: The liver is normal in size, shape, and attenuation. No focal hepatic lesion or biliary ductal dilatation is present. The gallbladder is unremarkable with no evidence of radiopaque gallstones, gallbladder wall thickening, or obvious pericholecystic inflammatory changes. PANCREAS: Unremarkable. SPLEEN: Unremarkable. ADRENAL GLANDS: Unremarkable. KIDNEYS AND URETERS: The kidneys are normal in size, shape, and attenuation. No hydronephrosis, hydroureter, or calculi seen. No perinephric stranding. BLADDER: Unremarkable. GASTROINTESTINAL TRACT: Normal appendix is visualized. Normal rectum. Moderate stool burden seen throughout the colon, suggestive of mild constipation. No colonic wall thickening or inflammation. There are rare colonic diverticula. The stomach is normal in appearance. The duodenal sweep appears normal. The small bowel is normal in caliber and course. PERITONEUM: No free air or ascites. Mild haziness of the central mesentery with small lymph nodes present, findings suggesting mesenteric panniculitis. ABDOMINAL WALL: No significant hernia is appreciated. LYMPH NODES: Normal. VASCULAR: Unremarkable. PELVIC VISCERA: The uterus and adnexa are unremarkable. OSSEOUS STRUCTURES: No suspicious lytic or blastic bone lesion. No acute finding. Degenerative disc disease L4-5 and L5-S1. CT/CT abdomen pelvis w IV con IMPRESSION: 1. No acute findings in the abdomen or pelvis. 2. Mild constipation. 3. Additional ancillary findings as discussed in the body of the report. Electronically signed by: Onur Barrett MD 01/23/2025 01:58 PM EDT
--- NOTE | ~2025-01-23 | CT_ITS ---
EXAMINATION: CT CHEST WITH CONTRAST CLINICAL INFORMATION: Hiatal hernia, abdominal pain 1 week. COMPARISON: None available. TECHNIQUE: Multidetector volumetric CT imaging of the chest was obtained after the administration of 50 mL of Omnipaque 350 intravenous contrast without immediate adverse reactions. Axial MIP volume rendering provided. Sagittal and coronal reformatted images were obtained. This CT examination was performed using dose optimization techniques as appropriate, variously including the following: *Automated exposure control *Adjustment of mA and/or kV according to patient size (this includes techniques or standardized protocols for targeted exams where dose is matched to indication/reason for exam; i.e. extremities or head) *Use of iterative reconstruction technique FINDINGS: LUNGS: There are a few scattered pulmonary calcified granulomata present. Lungs clear without evidence of consolidation or abnormal groundglass opacity. Small airways appear normal. No effusion or pneumothorax. No evidence of interstitial lung disease. Central airways are patent. MEDIASTINUM: -There is no significant hiatus hernia identified. Esophagus appears normal. There is no mass or abnormal lymphadenopathy. Normal thyroid. Normal aorta and great vessels. Normal main pulmonary artery. Normal heart. No pericardial effusion. AXILLA/CHEST WALL: No lymphadenopathy. No mass. UPPER ABDOMEN: Normal. Please refer to the dedicated abdomen and pelvis performed concurrently. OSSEOUS STRUCTURES: No suspicious lytic or blastic bone lesions. No acute findings. CT/CT chest w IV con IMPRESSION: 1. No acute findings of the chest. Electronically signed by: Onur Barrett MD 01/23/2025 02:20 PM EDT
[2025-01-23 10:46] VITALS: BP 119/84; PULSE 84; RESP 18; TEMP 36.3; O2SAT 97; BMI 29.0
--- NOTE | 2025-01-23 11:06 | ED.GENADULT ---
HPI - General Adult General Chief complaint: Abdominal Pain Stated complaint: abd pain, Hernia Pain Time Seen by Provider: 01/23/25 11:06 Source: patient, RN notes reviewed and old records reviewed Mode of arrival: ambulatory Limitations: no limitations History of Present Illness ED Provider: Amos HPI narrative: Patient is a 59-year-old female with history of GERD, hiatal hernia, hypercholesterolemia, trigeminal neuralgia, hemorrhoids, cervical disc disease, anxiety presenting to the emergency department with complaint of diffuse abdominal pain, bloating for the past week. Associated nausea without vomiting. Excessive belching/gas. Denies fevers. Reports starting new online diet around 6 weeks ago which includes dietary guidelines as well as supplements, has lost 15# since starting. States since starting this diet her bowel movements have become more regular, is now having daily BMs. Denies constipation or diarrhea. Called Dr. Vo who prescribed GI cocktail, states this did not improve her symptoms. Reports some radiation of pain to back. MD complaint: abdominal pain Onset (ago): week(s) Related Data Home Medications ?Medication ?Instructions ?Recorded ?Confirmed atorvastatin 10 mg tablet 1 tab PO DAILY 10/17/22 10/17/22 carbamazepine 100 mg 2 cap PO BID 10/17/22 10/17/22 capsule,extended release [id number] cetirizine 10 mg tablet 1 tab PO DAILY 10/17/22 10/17/22 cholecalciferol (vitamin D3) 50 1 tab PO DAILY 10/17/22 10/17/22 mcg (2,000 unit) tablet levothyroxine 75 mcg tablet 1 tab PO DAILY 10/17/22 10/17/22 lidocaine 5 % topical patch 1 patch topical DIRECTED 10/17/22 10/17/22 omeprazole 20 mg capsule,delayed 1 cap PO DAILY 10/17/22 10/17/22 release oxycodone-acetaminophen 5 mg-325 1 tab PO QID 10/17/22 10/17/22 mg tablet Previous Rx's ?Medication ?Instructions ?Recorded famotidine 40 mg tablet (Pepcid) 40 mg PO BEDTIME #30 tabs 01/21/25 omeprazole 40 mg capsule,delayed 40 mg PO DAILY #30 caps 01/21/25 release sucralfate 1 gram tablet 1 g PO TID #90 tabs 01/21/25 Allergies Allergy/AdvReac Type Severity Reaction Status Date / Time Seasonal Allergies Allergy Unknown Verified 01/23/25 10:47 Review of Systems Review of Systems: As per HPI Yes all other systems are reviewed and are negative Constitutional: Constitutional: Reports as per HPI [facility] Past Medical History Medical History Trigeminal neuralgia Hypercholesteremia Hemorrhoids Hiatal hernia Cervical disc disease Anxiety Surgical History H/O Spinal surgery H/O dilation and curettage H/O esophagogastroduodenoscopy H/O colonoscopy Social History Social History Patient Tobacco Use Status: Never used Tobacco Smoked in Last 30 Days: No Use of substances other than those prescribed or required for medical reasons: No Advance Directives: No Advance Directives Information Provided: Yes Patient : No Physical Exam ED Vital Signs: Vital Signs - 24 hr 01/23/25 10:46 01/23/25 14:53 Temperature 97.4 F 97.4 F Pulse Rate 84 72 Respiratory Rate 18 18 Blood Pressure 119/84 110/67 Pulse Oximetry 97 93 Oxygen Delivery Method Room Air Room Air BMI result Body Mass Index 29.0 Vital signs have been reviewed and appear to be correct. Blood pressure normal. Heart rate normal. Respiratory rate normal. Temperature normal. Oxygen saturation normal. Const General: cooperative, healthy appearing and no acute distress Orientation/consciousness: oriented to person, oriented to place, oriented to time and patient oriented x3 Limitations: no limitations [facility] Head: Yes normocephalic and Yes atraumatic Ears: external ears normal General nose exam: Normal external nose present Face and sinus: Yes face symmetric Mouth: oropharynx normal and moist mucous membranes Throat: Yes uvula midline Eyes Pupils: Equal, round and reactive pupils present Neck Neck: Yes normal visual inspection and Yes supple Resp Effort & Inspection: normal respiratory effort and able to speak in complete sentences Auscultation: clear to auscultation bilaterally Cardio Rate: regular rate Rhythm: regular rhythm Heart sounds: S1 normal heart sound present and S2 normal heart sound present GI Palpation (GI): Soft to palpation, Tenderness to palpation present (GI) in the epigastrum, no guarding and No Rebound tenderness present Auscultation: normoactive bowel sounds General: Yes no CVA tenderness Back/Spine/Pelvis Back: no CVA tenderness Skin General skin exam: elasticity normal and turgor normal Neuro General: oriented to person, oriented to place, oriented to time, patient oriented x3, moves all extremities, no focal motor deficits and CN's II-XI intact bilaterally Cranial nerves: Yes Equal, round and reactive pupils present Cognition (Neuro): normal cognition Extrem General: Yes full ROM, Yes no pedal edema and Yes no calf tenderness Psych Mental Status: mental status grossly normal Affect: normal affect Thought process: Normal thought process present Medications Administered Discontinued Medications Generic Name Dose Route Start Last Admin Trade Name German PRN Reason Stop Dose Admin Iohexol 100 ml 01/23/25 13:32 01/23/25 13:32 Iohexol 350 Mg/Ml 100 Ml Infus..Btl IV 01/23/25 13:33 85 ml ONCE ONE Administration Morphine Sulfate 4 mg 01/23/25 12:28 01/23/25 12:56 Morphine Sulfate 4 Mg/Ml Cartridge IVPUSH 01/23/25 12:29 4 mg ONCE ONE Administration Protocol Ondansetron HCl 4 mg 01/23/25 12:28 01/23/25 12:56 Ondansetron Hcl 4 Mg/2 Ml Vial IVPUSH 01/23/25 12:29 4 mg ONCE ONE Administration Medical Decision Making Medical Decision Making [facility] Narrative: Patient is a 59-year-old female with history of GERD, hiatal hernia, hypercholesterolemia, trigeminal neuralgia, hemorrhoids, cervical disc disease, anxiety presenting to the emergency department with complaint of diffuse abdominal pain, bloating for the past week. On exam patient is awake, A+Ox3, VS WNL, afebrile, normal neurological exam without focal deficits, physical exam findings as above. Given reported symptoms and physical exam findings, initial differential includes but is not limited to hiatal hernia, intermittent volvulus, gastritis, GERD, PUD, pancreatitis. Unlikely ACS. Labs notable for mild leukocytosis, otherwise unremarkable. CT chest, abdomen, pelvis notable for no acute abnormalities to explain patient's symptoms. My interpretation is in agreement with the radiologist's interpretation. Patient reporting that she is taking all of her medications as prescribed during assessment, however, reported to nurse that she is not taking her medications prescribed by route driver coin machines. Patient also unable to provide specifics regarding the types of supplements that she is currently taking. Discussed with patient that this could be contributing to her symptoms. Recommend patient follow-up with her route driver coin machines and take medications as prescribed. Return precautions discussed at bedside. Patient verbalized understanding of and agreement with plan. Differential Diagnosis Differential Diagnoses: The differential diagnosis associated with the presentation includes As per [facility] Admission/Observation Consideration of admission/observation: Escalation of care including admission/observation considered Patient would have been admitted to the hospital had their work up had any findings where hospital admission was appropriate and their clinical presentation warranted hospital admission. Lab Data [facility] Lab Attestation statement: I reviewed the patient's lab results. as per [facility] 01/23/25 11:40 01/23/25 11:40 Labs: Lab Results 01/23/25 Range/Units 11:40 WBC 11.0 H (4.8-10.8) X10*3/uL RBC 4.58 (4.20-5.50) X10*6/uL Hgb 14.0 (12.0-16.0) g/dl Hct 40.7 (37.0-47.0) % MCV 88.9 (80.0-98.0) fL MCH 30.6 (27.0-33.0) pg MCHC 34.4 (31.0-35.0) g/dl RDW 12.4 (11.0-16.0) % Plt Count 230 (160-400) X10*3/uL MPV 9.6 (9.4-12.3) fL Immature Gran % (Auto) 0.5 H (0.0-0.4) % Neut % (Auto) 50.4 (45-73) % Lymph % (Auto) 19.0 L (20-40) % [place] % (Auto) 6.4 (2-11) % Eos % (Auto) 23.3 H (0-4) % Baso % (Auto) 0.4 (0-2) % Lymph # (Auto) 2.1 (1.2-4.9) X10*3/uL [place] # (Auto) 0.7 (0.1-1.2) X10*3/uL Eos # (Auto) 2.6 H (0.0-0.4) X10*3/uL Baso # (Auto) 0.0 (0.0-0.2) X10*3/uL Abs Immat Gran (auto) 0.05 H (0.00-0.03) X10*3/uL Absolute Neuts (auto) 5.5 (2.0-8.3) x10*3/uL Absolute Nucleated RBC 0.000 (0.0-0.012) X10*3/uL Nucleated RBC % (auto) 0.0 (0.0-0.2) /100WBC Smear Tech's Comments VERIFIED PT 11.5 (10.9-12.4) SEC INR 1.0 (0.9-1.1) Sodium 142 (135-145) mmol/L Potassium 3.9 (3.3-5.1) mmol/L Chloride 107 (96-108) mmol/L Carbon Dioxide 29 (22-29) mmol/L Anion Gap 10 L (12-20) BUN 15 (9-16) mg/dL Creatinine 0.68 (0.5-1.4) mg/dL Estim Creat Clear Calc 97.1 Estimated GFR > 60 Random Glucose 108 (60-115) mg/dL Calcium 9.3 D (8.4-10.2) mg/dL Magnesium 1.9 (1.6-2.6) mg/dL Total Bilirubin 0.4 (0.0-1.0) mg/dL AST 28 (5-31) U/L ALT 22 (0-31) U/L Alkaline Phosphatase 92 (39-117) U/L Troponin I High Sens < 2.7 (<3.5-17.0) ng/L Total Protein 6.7 (6.5-8.0) g/dL Albumin 4.3 (3.5-5.0) g/dL Lipase 64 (8-78) U/L Independent Interpretation I performed an independent interpretation of an: CT Scan Interpretation: CT chest, abdomen, pelvis without acute abnormality Radiology Impression Discussion of test interpretation with radiology: I have reviewed the radiologist's reading. Radiologist Impression: CT/CT chest w IV con IMPRESSION: 1. No acute findings of the chest. CT/CT abdomen pelvis w IV con IMPRESSION: 1. No acute findings in the abdomen or pelvis. 2. Mild constipation. 3. Additional ancillary findings as discussed in the body of the report. External Record Review External record reviewed: Inpatient record, Office record and Outpatient record Discharge Plan Discharge Clinical Impression: Abdominal pain Patient Disposition: Home, Self-Care Instructions: Abdominal Pain (ED) Additional Instructions: You have been evaluated in the emergency department today for abdominal pain. Your evaluation including CT of your chest, abdomen and pelvis, did not show evidence of medical conditions requiring emergent intervention at this time. Please schedule an appointment with your route driver coin machines. Continue to take the medications prescribed by your route driver coin machines. Return to the emergency department if you experience worsening or uncontrolled pain, fevers 100.4? F or greater, recurrent vomiting, inability to tolerate food or fluids by mouth, bloody stools or vomit, black or tarry stools, or any other concerning symptoms. Prescriptions: No Action cetirizine 10 mg tablet 1 tab PO DAILY atorvastatin 10 mg tablet 1 tab PO DAILY levothyroxine 75 mcg tablet 1 tab PO DAILY oxycodone-acetaminophen 5-325 mg tablet 1 tab PO QID lidocaine 5 % adhesive patch,medicated 1 patch topical DIRECTED omeprazole 20 mg capsule,delayed release(DR/EC) 1 cap PO DAILY carbamazepine 100 mg capsule, ER multiphase 12 hr 2 cap PO BID cholecalciferol (vitamin D3) 50 mcg (2,000 unit) tablet 1 tab PO DAILY sucralfate 1 gram tablet 1 g PO TID Qty: 90 0RF famotidine [Pepcid] 40 mg tablet 40 mg PO BEDTIME Qty: 30 0RF omeprazole 40 mg capsule,delayed release(DR/EC) 40 mg PO DAILY Qty: 30 0RF Referrals: Kendall Vo MD [Physician] - 1 week Print Language: South Korean
--- NOTE | 2025-01-23 11:29 | ECG_ITS ---
Test Reason : epigastric pain Blood Pressure : */* mmHG Vent. Rate : 76 BPM Atrial Rate : 76 BPM P-R Int : 128 ms QRS Dur : 82 ms QT Int : 386 ms P-R-T Axes : 42 27 49 degrees QTcB Int : 434 ms Normal sinus rhythm Normal ECG When compared with ECG of 20-Jan-2025 16:51, No significant change was found Referred By: Eva Trinidad Electronically Signed By: LENNY PADRON MD
[2025-01-23 11:45] LABS: Basophils Percent Auto 0.4 % (0-2); Eosinophils Absolute Auto 2.6 X10*3/uL (0.0-0.4); Eosinophils Percent Auto 23.3 % (0-4); Hematocrit 40.7 % (37.0-47.0); Imm Gran Abs Auto 0.05 X10*3/uL (0.00-0.03); Imm Gran Pct Auto 0.5 % (0.0-0.4); Lymphocytes Absolute Auto 2.1 X10*3/uL (1.2-4.9); MANUAL DIFF FLAG SCAN; Mean Corpuscular HGB Conc 34.4 g/dl (31.0-35.0); Mean Corpuscular Hemoglobin 30.6 pg (27.0-33.0); Mean Corpuscular Volume 88.9 fL (80.0-98.0); Mean Platelet Volume 9.6 fL (9.4-12.3); Monocytes Absolute Auto 0.7 X10*3/uL (0.1-1.2); Monocytes Percent Auto 6.4 % (2-11); Neutrophils Absolute Auto 5.5 x10*3/uL (2.0-8.3); Neutrophils Percent Auto 50.4 % (45-73); Platelet Count 230 X10*3/uL (160-400); Red Blood Count 4.58 X10*6/uL (4.20-5.50); Red Cell Distribution Width 12.4 % (11.0-16.0); SCAN SMEAR FLAG 1
[2025-01-23 11:50] LABS: Prothrombin Time 11.5 SEC (10.9-12.4)
[2025-01-23 11:59] LABS: Alanine Aminotransferase 22 U/L (0-31); Albumin Level 4.3 g/dL (3.5-5.0); Alkaline Phosphatase 92 U/L (39-117); Anion Gap 10 (12-20); Aspartate Amino Transferase 28 U/L (5-31); Bilirubin Total 0.4 mg/dL (0.0-1.0); Blood Urea Nitrogen 15 mg/dL (9-16); Calcium 9.3 mg/dL (8.4-10.2); Carbon Dioxide 29 mmol/L (22-29); Chloride 107 mmol/L (96-108); Creatinine Clr Calc Pharmacy 97.1; Estimated Glomerular Filt Rate > 60; Glucose Random 108 mg/dL (60-115); Lipase 64 U/L (8-78); Magnesium 1.9 mg/dL (1.6-2.6); Potassium 3.9 mmol/L (3.3-5.1); Sodium 142 mmol/L (135-145); Total Protein 6.7 g/dL (6.5-8.0)
[2025-01-23 12:03] LABS: SLIDE REVIEW VERIFIED
[2025-01-23 12:10] LABS: Troponin-I High Sensitivity < 2.7 ng/L (<3.5-17.0)
--- OUTSIDE RECORDS SUMMARY | 2025-01-23 12:55 | XMS_ITS | Continuity of Care Document ---
Author Organization [facility] Address [address] [place] [address]- Care Team Providers Care Stack Clerk Name Role Phone Rocco TRAYLOR, Marely Todd Primary Care Physici an [place] [facility] [place] 01/22/25 [facility] [address] [place], [place] [address] [place] Encounter Type: Triage Allergies, Adverse Reactions, Alerts [...] vaccine 12/05/20 R ecorded 1Result Comment: [06/04/2017] [facility] [id number] 2Result Comment: [06/07/2015] [facility] 3Admin Note: FLULAVAL Medications acetaminophen-oxyCODONE 325 mg-5 mg oral tablet 1, tablet, By Mouth, 3 times a day, PRN, DNF 01/04/2025, # 84 tablet, Refills 0, Tot. Refills 0, Maintenance, Pain , Severe, 12/27/24 2:28:00 PM EDT, Route to Pharmacy Electronically, [facility]/pharmacy #[id number] Tablet, Partial fill upon patient request if the prescription is for a schedule II opioid drug., 168, cm, 11/16/24 6:42:00 EDT, Height, 85.4, kg, 11/16/24 6:42:00 EDT, Dry Weight Start Date: 12/27/24 Stop Date: 01/24/25 Status: Ordered Quantity: 84.0 Unit: tablet Repeat number: 1 Indications: Dorsalgia, unspecified; atorvastatin 40 mg oral tablet 0.5 tablet [...] 0 Refills, Maintenance, 07/13/23 12:00:00 PM EST, [id number], 165, cm, 06/09/23 10:32:00 EDT, Height Start Date: 07/13/23 Stop Date: 01/18/25 Status: Ordered Quantity: 90.0 Unit: capsule Repeat number: 1 duloxetine 20 mg oral enteric coated capsule 2 capsule = 40 mg, By Mouth, Daily, # 60 capsule, 0 Refills, Maintenance, 10/20/24 10:48:00 AM EST, EC Capsule, [facility]/pharmacy #[id number], Partial fill upon patient request if the prescription is for a schedule II opioid drug., 168, cm, 09/23/24 15:41:00 EST, Height, 88.4, kg, 04/11/24 12:49:00 EDT, Dry Weight Start Date: 10/20/24 Stop Date: 11/19/24 Status: Ordered Quantity: 60.0 Unit: capsule Repeat number: 1 Indications: Trigeminal neuralgia; levothyroxine 75 mcg (0.075 mg) oral tablet [...] Refills, Maintenance, 06/24/24 5:42:00 PM EST, Film, [facility]/pharmacy #[id number], Partial fill upon patient request [...] Refills, Maintenance, 11/22/24 12:21:00 PM EDT, Tablet, [facility]/pharmacy #[id number], Partial fill upon patient request [...] dx: carpal tunnel, 12/28/15 2:45:29 PM EDT,fax: [phone], Compound Start Date: 12/28/15 Status: Ordered Quantity: [...] Active Hx of retinal detachment Confirmed Active 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 ED RN W/OE and Tasks Member Role: Primary Care Nurse Name: Marely Valiente NP Position: [facility] PCO Associate Professional Member Role: PCP Address: [address] [place] [address] Telecom: Care Team Related Persons Name: NBA VAZQUEZ Name: JUANITA DOTSON Name: NBA DOTSON Insurance Providers Guarantor name: LASHELL DOTSON Health Plan Information #: 1 Payer: [employer] Payer Identifier: ADONAY Member Number: [id number] Group Number: [id number] Subscriber Identifier: [id number] Relationship to Subscriber: spouse Coverage Type: Managed Care (Private) Coverage Verification Date: NA Telecom: NA Address:
[2025-01-23] MEDS: Morphine Sulfate 4 MG/ML CARTRIDGE IVPUSH (12:56)
[2025-01-23] MEDS: ondansetron HCL 4 MG/2 ML VIAL IVPUSH (12:56)
[2025-01-23] MEDS: iohexoL 350 MG/ML 100 ML INFUS..BTL IV (13:32)
--- NOTE | 2025-01-23 14:45 | PC.NURSE ---
pt sts that she has not been taking omeprazole as prescribed. pt sts i dont think reflux causes this much pain I also heard it's not good for you, but I didnt tell the doctor that . KYMBERLY Trinidad notified
[2025-01-23 14:53] VITALS: BP 110/67; PULSE 72; RESP 18; TEMP 36.3; O2SAT 93
[2025-01-23 15:18] VITALS: BP 110/67; PULSE 72; RESP 18; TEMP 36.3; O2SAT 93
== END 2025-01-23 15:22 | disposition home or self-care (01) ==
PROVIDERS: Registered Nurse Emergency; Emergency Provider Emergency Medicine; PCP Nurse Practitioner Family
DX: R10.2 Pelvic and perineal pain (principal); R14.0 Abdominal distension (gaseous); K59.00 Constipation, unspecified; R11.0 Nausea; M54.50 Low back pain, unspecified; R10.13 Epigastric pain; Z79.899 Other long term (current) drug therapy
CPT/HCPCS: 36415; 71260; 74177; 80053; 83690; 83735; 84484; 85025; 85610; 93005; 96374; 96375; 99284; 99285; J2270; J2405; Q9967

== ENCOUNTER → 2025-01-23 11:18 | Outpatient (BNV) | payer OTHER, SELFPAY | PROVIDERS: Emergency Provider Emergency Medicine; PCP Nurse Practitioner Family; Visit Provider Radiology Diagnostic Radiology | DX: R10.9 Unspecified abdominal pain (principal); R14.0 Abdominal distension (gaseous); K44.9 Diaphragmatic hernia without obstruction or gangrene | CPT/HCPCS: 71260; 74177 ==

== ENCOUNTER → 2025-01-23 11:29 | Outpatient (BNV) | payer OTHER, SELFPAY | PROVIDERS: Emergency Provider Emergency Medicine; PCP Nurse Practitioner Family; Visit Provider Internal Medicine Cardiovascular Disease | DX: R10.13 Epigastric pain (principal) | CPT/HCPCS: 93010 ==

== ENCOUNTER 2025-01-25 05:48 | Emergency (ER) | payer OTHER, SELFPAY ==
[2025-01-25 05:54] VITALS: BP 101/44; PULSE 100; RESP 18; O2SAT 97; BMI 31.0
--- NOTE | 2025-01-25 06:01 | PC.NURSE ---
requesting to speak with charger operator about bring brought back quickly, charger operator and this RN speaking with patient and and informing them of the wait time and bed availability. decision made to leave and try another hospital for care.
== END 2025-01-25 06:32 | disposition left against medical advice (07) ==
PROVIDERS: Emergency Provider Emergency Medicine
DX: R10.9 Unspecified abdominal pain (principal); Z53.21 Procedure and treatment not carried out due to patient leaving prior to being seen by health care provider
CPT/HCPCS: 99281

== ENCOUNTER → 2025-03-17 10:18 | Outpatient (REF) | payer BC, SELFPAY ==
--- OUTSIDE RECORDS SUMMARY | 2025-03-11 23:59 | XMS_ITS | Continuity of Care Document ---
Author Organization [facility] Address [address] [place] [address]- Care Team Providers Care Packerhead Machine Operator Name Role Phone Rocco TRAYLOR, Marely Todd Primary Care Physici an Encounter [facility] [place] Date(s): 02/09/25 - 03/11/25 [facility] [address] [place], [place] [address] Encounter Type: Triage Allergies, Adverse Reactions, Alerts [...] vaccine 12/05/20 R ecorded 1Result Comment: [06/04/2017] [facility] [id number] 2Result Comment: [06/07/2015] [facility] 3Admin Note: FLULAVAL Medications acetaminophen-oxyCODONE 325 mg-5 mg oral tablet 1, tablet, By Mouth, 3 times a day, PRN, DNF 02/25/25. OK to take with Oxycodone 5mg (separate 7 dayrx sent for acute on chronic pain), # 84 tablet, Refills 0, Tot. Refills 0, Maintenance, Pain , Severe, 03/21/25 6:30:00 PM EDT, Route to Pharmacy Electronically, [facility]/pharmacy #[id number] Tablet, Partial fill upon patient request if the prescription is for a schedule II opioid drug., 168, cm, 02/21/25 13:07:00 EDT, Height, 82.5, kg, 02/15/25 7:14:00 EDT, Dry Weight Start Date: 03/21/25 Stop Date: 04/18/25 Status: Ordered Quantity: 84.0 Unit: tablet Repeat number: 1 Indications: Dorsalgia, unspecified; acetaminophen-oxyCODONE 325 mg-5 mg oral tablet 1, tablet, By Mouth, 3 times a day, PRN, DNF 03/01/25. OK to take with Oxycodone 5mg (separate 7 dayrx sent for acute on chronic pain) for 28 days, # 84 tablet, Refills 0, Tot. Refills 0, Hard Stop, Pain , Severe, 03/21/25 6:30:00 PM EDT, 02/21/25 6:30:00 PM EDT, Route to Pharmacy Electronically, [facility]/pharmacy #[id number] Tablet, Partial fill upon patient request if the prescription is for a schedule II opioid drug., 168, cm, 02/21/25 13:07:00 EDT, Height, 82.5, kg, 02/15/25 7:14:00 EDT, Dry Weight Start Date: 02/21/25 Stop Date: 03/21/25 Status: Ordered Quantity: 84.0 Unit: tablet Repeat [...] 0 Refills, Maintenance, 07/13/23 12:00:00 PM EST, [id number], 165, cm, 06/09/23 10:32:00 EDT, Height Start Date: 07/13/23 Stop Date: 01/18/25 Status: Ordered Quantity: 90.0 Unit: capsule Repeat number: 1 dicyclomine 10 mg oral capsule 0 Refills, Maintenance, 01/26/25 10:58:00 AM EDT, Partial fill upon patient request if the prescription is for a schedule II opioid drug. Start Date: 01/26/25 Status: Ordered Repeat number: 1 duloxetine 20 mg oral enteric coated capsule 2 capsule = 40 mg, By Mouth, Daily, # 60 capsule, 0 Refills, Maintenance, 10/20/24 10:48:00 AM EST, EC Capsule, [facility]/pharmacy #[id number], Partial fill upon patient request if the prescription is for a schedule II opioid drug., 168, cm, 09/23/24 15:41:00 EST, Height, 88.4, kg, 04/11/24 12:49:00 EDT, Dry Weight Start Date: 10/20/24 Stop Date: 11/19/24 Status: Ordered Quantity: 60.0 Unit: capsule Repeat number: 1 Indications: Trigeminal neuralgia; famotidine 40 mg oral tablet 0 Refills, Maintenance, 01/26/25 10:58:00 AM EDT, Partial fill upon patient request if the prescription is for a schedule II opioid drug. Start Date: 01/26/25 Status: Ordered Repeat number: 1 levothyroxine 75 mcg (0.075 mg) oral tablet 1 tablet, By Mouth, Daily, # 90 tablet, 1 Refills, Maintenance, 06/24/24 1:52:00 PM EST, [facility], 168, cm, 05/16/24 15:52:00 EDT, Height, 88.4, kg, 04/11/24 12:49:00 EDT, Dry Weight Start Date: 06/24/24 Status: Ordered Quantity: 90.0 Unit: tablet Repeat number: 2 lidocaine 5% topical film 1 patch, Topically, Daily, PRN Pain , Mild, remove after 12 hours, # 13 each, 0 Refills, Maintenance, 06/24/24 5:42:00 PM EST, Film, [facility]/pharmacy #[id number], Partial fill upon patient request if [...] Refills, Maintenance, 11/22/24 12:21:00 PM EDT, Tablet, [facility]/pharmacy #[id number], Partial fill upon patient request if theprescription is for a schedule II opioid drug., 168, cm, 11/16/24 6:42:00 EDT, Height, 85.4, kg, 11/16/24 6:42:00 EDT, Dry Weight Start Date: 11/22/24 Status: Ordered Quantity: 2.0 Unit: tablet Repeat number: 1 omeprazole 20 mg oral enteric coated capsule 2 capsule = 40 mg, By Mouth, Daily, # 90 capsule, 1 Refills, Maintenance, 11/29/24 2:26:00 PM EDT, [facility], 168, cm, 11/16/24 6:42:00 EDT, Height, 85.4, kg, 11/16/24 6:42:00 EDT,Dry Weight Start Date: 11/29/24 Status: Ordered Quantity: 90.0 Unit: capsule Repeat number: 2 Splint See Instructions, # 1 pair, Maintenance, B wrist splints dx: carpal tunnel, 12/28/15 2:45:29 PM EDT,fax: [phone], Compound Start Date: 12/28/15 Status: Ordered Quantity: 1.0 Unit: pair Repeat number: 1 sucralfate 1 gm oral tablet Refills 0, Maintenance, 01/26/25 10:58:00 AM EDT, Partial fill upon patient request if the prescription is for a schedule II opioid drug. Start Date: 01/26/25 Status: Ordered Repeat number: 1 Vitamin D3 2000 intl [...] history of cancer of colon Confirmed Active Chronic GERD Confirmed Active Herpes genitalis Confirmed Active Hx of retinal detachment Confirmed Active longterm current use of opiate analgesic Confirmed Active Hyperlipidemia Confirmed Active Hypothyroidism (?post surgical) Confirmed Active Insomnia Confirmed Active Anxiety and depression Confirmed Active Obstructive sleep apnea on CPAP Confirmed Active Fibromatosis, plantar Confirmed Active Prolapsed cervical intervertebral disc Confirmed Active Seasonal allergies Confirmed Active Trigeminal neuralgia Confirmed Active Social History Social History Type Response Smoking Status Never smoker entered on: 10/21/13 Sex Sex Representation Female (finding) Patient Care team information Care Team Personnel Name: Vanessa Schulte RN Position: [facility] ED RN W/OE and Tasks Member Role: Primary Care Nurse Name: Rocco TRAYLOR, Marely Todd Position: [facility] PCO Associate Professional Member Role: PCP Address: [address] [place] [address] Telecom: Care Team Related Persons Name: NBA VAZQUEZ Name: JUANITA DOTSON Name: NBA DOTSON Insurance Providers Guarantor name: LASHELL DOTSON Health Plan Information #: 1 Payer: [employer] Payer Identifier: NA Member Number: [id number] Group Number: [id number] Subscriber Identifier: [id number] Relationship to Subscriber: spouse Coverage Type: NA Coverage Verification Date: NA Telecom: Address:
--- NOTE | ~2025-03-17 | NM_ITS ---
EXAMINATION: NM BILIARY TRACT CLINICAL INFORMATION: Epigastric abdominal pain COMPARISON: CT from 05/06/2025 and ultrasound from January 20, 2025 Radioparhmaceutical: 5.0mCi technetium 99m labeled mebrofenin Other medications: 1.6mcg CCK infused IV over 30 minutes , one hour post injection of mebrofenin (a.k.a. Choletec) TECHNIQUE: Hepatobiliary scintigraphy was performed after the intravenous administration of technetium 99m labeled Choletec. Imaging was performed every 1 minutes for 60 minutes after which, CCK was infused IV over 30 minutes with imaging continuing for an additional 30minutes. Ejection fraction curve was generated with a region of interest placed over the gallbladder. FINDINGS: After Choletech injection, there is prompt uptake of radiotracer by the liver. Intrahepatic biliary filling was visible within 13 minutes and gallbladder filling was visible within 22minutes. Small bowel filling was noted within 13minutes. After CCK infusion, ejection fraction measured 91%. NM/NM hepatobiliary w pharm IMPRESSION: Unremarkable examination. Electronically signed by: Giovani Hernandez MD 03/17/2025 01:26 PM EDT
--- OUTSIDE RECORDS SUMMARY | 2025-03-17 10:28 | XMS_ITS | Patient Health Record ---
Author Organization [facility] Address [address] [place] [address] Care Team Providers Care Conference Planning Manager Name Role Phone Marely Valiente Primary Care Provi nela Unavailable Kendall Vo Unavailable [phone] Allergies Allergen (clinical drug ingredient) Drug/Non Drug Allergy documented on EMR Reaction Allergy Type Onset Date Status seasonal (uncoded) Unknown Allergy A ctive Reason For Referral No Information Medications Medication SIG (Take, Route, Frequency, Duration) Notes Start Date End Date Status carBAMazepine ER 100 MG TAKE 2 CAPSULES BY MOUTH TWICE A DAY Oral for 30 Active Baclofen prn muscle pain Not daily Not- Taking oxyCODONE-Acetaminoph en 5-325 MG TAKE 1 TABLET BY MOUTH EVERY 4 HOURS FOR 28 DAYS. FILL ON 07/16/22 Oral for 28 Active MiraLax 1 1 capful in 8 ounces of water Orally QD -BID for constipationprn 07/21/2017 Not-Taking Levothyroxine Sodium 75 MCG TAKE 1 TABLET BY MOUTH DAILY Oral for 90 Active Vitamin D3 50 MCG (1999) TAKE 1 TABLET BY MOUTH EVERY DAY WITH FOOD Oral for 90 Active Atorvastatin Calcium 10 MG TAKE 1 TABLET BY MOUTH EVERY DAY Oral for 90 Active Omeprazole 20 MG TAKE 1 CAPSULE BY MO UTH EVERY DAY for 90 Active Allergies prn Active Lidocaine 5 % 1 patch to skin kip ve after 12 hours Externally Once a day Active Immunizations Vaccine Route Administration Date Status Comme nts Influenza Unknown 07/25/2022 Refused Influenza Unknown 03/08/2025 Refused Social History Alcohol Screen Question Answer Notes Did you have a drink contain ing alcohol in the past year? Yes How often did you have a dri nk containing alcohol in the past year? Monthly or less (1 point) How many drinks did you have on a typical day when you were drinking in the past year? 1 or 2 drinks (0 point) How often did you have 6 or more drinks on one occasion in the past year? Never (0 point) Points 1 Interpretation Negative Section Notes: Nonsmoker; occasional alcoho l Nonsmoker; occasional alcoho l Nonsmoker; occasional alcoho l Nonsmoker; occasional alcoho l Nonsmoker; occasional alcoho l Nonsmoker; occasional alcoho l Problems Problem Type SNOMED Code ICD Code Onset Dates Problem Status W/U Status Risk Notes Problem Epigastric pain (79675948) Epigastric abdominal pain (R10.13) Active confirmed Problem 841433761 Encounter for screening for malignant neoplasm of colon (Z12.11) Active confirmed Problem Diverticular disease of colon (044170019) Diverticulosis of large intestine without perforation or abscess without bleeding (K57.30) Active confirmed Problem Gastroesophageal reflux disease (898572945) Gastroesophageal reflux disease (K21.9) Active confirmed Problem [id number] Preprocedural examination (Z01.818) Active confirmed Problem 359581555 Family history o f colon cancer (Z80.0) Active confirmed Problem 36712799 Constipation, unspecified constipation type (K59.00) Active confirmed Problem Gastroesophageal reflux disease (318823210) GERD (gastroesophageal reflux disease) (K21.9) Active confirmed Problem Generalized abdominal pain (405873485) Abdominal pain, acute, generalized (R10.84) Active confirmed Vital Signs Temperature 97.5 degrees Fahrenheit 03/08/2025 Blood pressure diastolic 01 mm Hg 03/08/2025 Height 65.5 in 03/08/2025 Blood pressure systolic 001 mm Hg 03/08/2025 Weight 182.8 lbs 03/08/2025 BMI 29.95 kg/m2 03/08/2025 Encounters Encounter Location Date Provider Diagnosis [facility] [address] [place] [phone] 03/08/2025 Kendall Vo GERD (gastroesophage al reflux disease) K21.9 and Epigastric abdominal pain R10.13 [facility] [address] [place] [phone] 01/20/2025 Kendall Vo [facility] [address] [place] [address] [place] [address] 01/23/2025 Kendall Vo Abdominal pain, acut e, generalized R10.84 [facility] [address] [place] [address] 02/03/2025 Kendall Vo Assessments Encounter Date Diagnosis (ICD Code) Assessment Notes Treatment Notes Treatment Clinical Notes Section Notes 03/08/2025 Epigastric abdominal pain (ICD-10 - R10.13) Overall, Lashell appears to be doing very well at the present time and appears well from a clinical standpoint. We did review her symptoms and the extensive workup that she has had. Based on all of that and her significant improvement, I advised her that her symptoms may be reflective of some underlying irritable bowel syndrome. Another possibility, given the normal gallbladder ultrasound and her relatively severe symptoms symptoms as she describes them, could be that of acalculous cholecystitis. As such, I shall schedule her for a HIDA scan with [facility] to assess for that. Other than that, I do not think she needs any further imaging studies, laboratory testing, nor endoscopic evaluation. I did advise her to continue her omeprazole in the meantime. If the HIDA scan with [facility] is negative for acalculous cholecystitis I advised her that I would plan to see her again just as needed. We did review that she will be due for a follow-up screening colonoscopy in 2027. We did review that if the HIDA scan is abnormal then we might want to refer her to a surgeon to review her symptoms and discuss potential cholecystectomy. I have advised her to contact me as needed. Lashell and her were comfortable with this plan. Thank you again for allowing me to participate in Lashell's care. I shall continue to keep you advised of her progress. 03/08/2025 GERD (gastroesophage al reflux disease) (ICD-10 - K21.9) Overall, Lashell appears to be doing very well at the present time and appears well from a clinical standpoint. We did review her symptoms and the extensive workup that she has had. Based on all of that and her significant improvement, I advised her that her symptoms may be reflective of some underlying irritable bowel syndrome. Another possibility, given the normal gallbladder ultrasound and her relatively severe symptoms symptoms as she describes them, could be that of acalculous cholecystitis. As such, I shall schedule her for a HIDA scan with [facility] to assess for that. Other than that, I do not think she needs any further imaging studies, laboratory testing, nor endoscopic evaluation. I did advise her to continue her omeprazole in the meantime. If the HIDA scan with [facility] is negative for acalculous cholecystitis I advised her that I would plan to see her again just as needed. We did review that she will be due for a follow-up screening colonoscopy in 2027. We did review that if the HIDA scan is abnormal then we might want to refer her to a surgeon to review her symptoms and discuss potential cholecystectomy. I have advised her to contact me as needed. Lashell and her were comfortable with this plan. Thank you again for allowing me to participate in Lashell's care. I shall continue to keep you advised of her progress. 01/23/2025 Abdominal pain, acute, generalized (ICD-10 - R10.84) Plan Of Treatment Pending Test Test Name Order Date CELIAC PANEL #10 12/17/2012 ENDOMYSIAL IGA 12/17/2012 TRANSGLUTAMINASE AB IGA 12/17/2012 TRANSGLUTAMINASE AB IGG 12/17/2012 NUC HIDA SCAN 03/08/2025 Future Test Test Name Order Date UPPER GI ENDOSCOPY 12/17/2012 COLONOSCOPY 12/17/2012 COLONOSCOPY 02/23/2018 UPPER GI ENDOSCOPY 07/25/2022 COLONOSCOPY 07/25/2022 Insurance Providers Payer Name Payer Address Payer Phone Subscriber Number Group Number Insured Name Patient Relationship to Insured Coverage Start Date Coverage End Date [facility] [address] [place], [place] [id number] [phone] [id number] LASHELL DOTSON Self - patient is the insured 6 Medical (General) History Medical History History ICD Code Colonoscopy 05-08-2008 and 09/2002--neg fo r polyps--Int/Ext hemorrhoids Anxiety Denies VA,DM,CVA,Lung disease,renal dise ase C-spine disc disease Upper endoscopy in January with the finding of a small hiatal hernia, but otherwise no significant findings-biopsies were negative for celiac disease, H. pylori, significant esophagitis, and Alvarez's esophagus Colonoscopy in January of 2013 was negative for polyps or inflammatory bowel disease Negative gallbladder ultraso und in 2012 and negative labs for celiac disease in 2012 Hypercholesterolemia Trigeminal neurlagia bilateral Negative colonoscopy in 04/2018 Negative screening colonoscopy in 2022 Upper endoscopy in 2022 reve aled a small hiatal hernia but no evidence of any esophagitis, Alvarez's esophagus, nor ulcer disease Surgical History Surgery Date(Month/Year) cataract-lens implants Retina repair Fibroids 2016 C-spine disc-Dr. Lr D&C
== END ==
LOC: HO.NUCMED 10:18
PROVIDERS: PCP Nurse Practitioner Family; Visit Provider Internal Medicine
DX: R10.13 Epigastric pain (principal)
CPT/HCPCS: 78227; A9537; J2805

== ENCOUNTER → 2025-03-17 10:29 | Outpatient (BNV) | payer BC, SELFPAY | PROVIDERS: PCP Nurse Practitioner Family; Visit Provider Radiology Diagnostic Radiology | DX: R10.13 Epigastric pain (principal) | CPT/HCPCS: 78227 ==

== ENCOUNTER 2025-03-23 07:28 | Outpatient (REF) | payer BC, SELFPAY ==
--- OUTSIDE RECORDS SUMMARY | 2025-03-23 07:30 | XMS_ITS | Clinical Summary ---
Author Organization [facility] Address [address] [place] [address] Phone Care Team Providers Care Envelope Folding Machine Adjuster Name Role Phone Tracey Duron MD Unavailable [phone] Yung Canales MD Unavailable [phone] Marely Spencer SPUN PASTE MACHINE OPERATOR Primary Care Pr ovider Allergies Active Allergy Reactions Criticality Noted Date Comments Other 10/23/2017 Dust mold seasonal Medications valACYclovir (VALTREX) 500 MG tablet Take 1 tablet by mouth every 12 (twelve) hours as needed. 02/02/2014 Active oxyCODONE-aceta minophen (PERCOCET) 5-325 mg per tablet Take 1 tablet by mouth every 6 (six) hours as needed. Active baclofen (LIORESAL) 10 MG tablet 1 tablet with food or milk Orally Three times a day Active ALPRAZolam (XANAX) 0.25 MG tablet Take 1 tablet by mouth 3 (three) times a day. Active lidocaine 5 % ointmentIndicat ions:History of herpes genitalis APPLY TO AFFECTED AREA EVERY DAY NEEDED 35.44 g 10/17/2019 Active Active Problems No known active problems Encounters Date Type Department Care Team Description 01/25/2025 7:21 AM EDT - 01/25/2025 3:05 PM EDT Emergency [facility] [address] [place] [address] Liborio Monroy MD Discharge Disposition: Home or Self Care from Last 3 Months Family History Medical History Relation Comments Prostate cancer Father Heart disease Maternal Grandmother Breast cancer Mother age 73 Endometrial cancer Mother Breast cancer Paternal Aunt age 60 Colon cancer Paternal Aunt Heart disease Paternal Grandfather Heart failure Paternal Grandmother Other Unspecified Breast cancer, p aternal aunts x2 Relation Status Comments Father Alive Maternal Grandmother Mother Alive Paternal Aunt Paternal Grandfather Paternal Grandmother Unspecified Social History Tobacco Use Types Packs/Day Years Used Date Smoking Tobacco: Never Smokeless Tobacco: Never Alcohol Use Standard Drinks/Week Comments Yes 0 (1 standard drink = 0.6 oz pur e alcohol) Education Answer Date Recorded Are you interested in more education? Not on bill e 12/12/2022 Are you concerned about learning? Not on file 12/12/2022 No 12/12/2022 No 12/12/2022 Food Answer Date Recorded Within the past 6 months we worried whether our food would run out before we got money to buy more. Never True 01/25/2025 Within the past 6 months the food we bought just didn't last and we didn't have enough money to get more. Never True Residential Stability Answer Date Recor ded What is your housing situation today? I have cricket sing 01/25/2025 How many times have you move d in the past 12 months? Zero (I did not move) 01/25/2025 Paying for Meds Answer Date Recorded Do you have trouble paying for medicines? No 01/25/2025 Paying Utility Bills Answer Date Record ed Do you have trouble paying your heating or elect ricity bill? No 01/25/2025 Transportation Answer Date Recorded Has the lack of transportati on kept you from medical appointments or from getting medications? No 01/25/2025 Digital Access Answer Date Recorded No 01/25/2025 Yes 01/25/2025 Do you have reliable internet access at home? Ye s 01/25/2025 Do you have a device (e.g., phone, tablet, computer) with a working camera? Yes 01/25/2025 Intimate Partner Violence Answer Date R ecorded Are you denied basic needs s uch as food, clothing, or medical care? No 01/25/2025 In the past 12 months have y ou been in a relationship with a person who hurts, threatens, or tries to control you? No 01/25/2025 Are you denied basic needs s uch as food, clothing, or medical care? No 01/25/2025 In the past 12 months have y ou been in a relationship with a person who hurts, threatens, or tries to control you? No 01/25/2025 Comments No Sex and Gender Information Value Date Recorded Sex Assigned at Not on file Legal Sex Female 9:39 PM EDT Gender Identity Not on file Sexual Orientation Not on file Last Filed Vital Signs Vital Sign Reading Time Taken Comments Blood Pressure 126/71 01/25/2025 3:00 PM EDT Pulse 88 01/25/2025 3:00 PM EDT Temperature 36.1 C (97 F) 01/25/2025 3:00 PM EDT Respiratory Rate 13 01/25/2025 3:00 PM EDT Oxygen Saturation 97% 01/25/2025 3:00 PM EDT Inhaled Oxygen Concentration - - Weight 81.2 kg (179 lb 0.2 oz) 01/25/2025 6:26 A M EDT Height 167.6 cm (5' 5.98 ) 01/25/2025 6:26 AM ED T Body Mass Index 28.91 01/25/2025 6:26 AM EDT Plan of Treatment Health Maintenance Due Date Last Done Comments Adult Td,Tdap Booster 1965 LIPID PANEL 1965 DEPRESSION SCREENING 1978 HEPATITIS C SCREENING 1984 HIV ONE-TIME SCREENING (18-6 5 YEARS) 1984 MAMMOGRAM 2006 COLOGUARD 2011 COLONOSCOPY 2011 COLORECTAL CANCER SCREENING 2011 FIT TEST 2011 FOBT 2011 SIGMOIDOSCOPY 2011 VIRTUAL COLONOSCOPY 2011 PNEUMOCOCCAL VACCINES (50+ years) (1 of 1 - PCV) 2016 ZOSTER VACCINES (1 of 2) 2016 PAP SMEAR 10/23/2022 10/23/2017, 10/23/2017, 09/03/2016 COVID-19 VACCINE (3 2023-2 5 season) 2024 01/01/2021, 12/05/2020 SCREENING FOR DIABETES 01/26/2028 01/25/2025 SMOKING STATUS SCREENING (On ce After 26 Yrs) Completed 11/04/2018 HEPATITIS A VACCINES Aged Out No long er eligible based on patient's age to complete this topic HIB VACCINES Aged Out No longer eligi ble based on patient's age to complete this topic MENINGOCOCCAL VACCINES (ACWY) Aged Out No longer eligible based on patient's age to complete this topic MENINGOCOCCAL VACCINES (B) Aged Out N o longer eligible based on patient's age to complete this topic Medical Devices Not on file Procedures Procedure Name Priority Date/Time Associated Diagnosis Comments MAGNESIUM STAT 01/25/2025 9:34 AM EDT LIPASE STAT 01/25/2025 9:34 AM EDT LFTS (HEPATIC PANEL) STAT 01/25/2025 9:34 AM EDT BASIC METABOLIC PANEL STAT 01/25/2025 9:34 AM EDT CBC AND DIFFERENTIAL STAT 01/25/2025 7:58 AM EDT PAP TEST Routine 10/23/2017 12:00 AM EST from Last 3 Months or Most Recently Relevant to Health Maintenance Results * (ABNORMAL) LFTs (hepatic panel) (01/25/2025 9:34 AM EDT) ALKALINE PHOSPHATASE 97 39 - 117 U/L [facility] TOTAL BILIRUBIN 0.4 0.0 - 1.2 mg/dL [facility] DIRECT BILIRUBIN 0.2 0.0 - 0.2 mg/dL [facility] Bilirubin (Indirect) 0.2 0 - 1.5 mg/dL [facility] AST 27 0 - 37 U/L [facility] ALT 20 0 - 40 U/L [facility] TOTAL PROTEIN 6.3(L) 6.5 - 8.0 g/dL [facility] ALBUMIN 3.7(L) 3.9 - 4.8 g/dL [facility] GLOBULIN 2.6 1 - 4.8 g/dL [facility] A/G Ratio 1.42 1.00 - 4.80 RATIO [facility] Blood 01/25/2025 9:34 AM EDT 01/25/2025 9:44 AM EDT Liborio Monroy MD LAB BLOOD ORDERABLES Final Result Performing Organization Address [facility]/ZIP Co de Phone Number [address] [address] * Magnesium (01/25/2025 9:34 AM EDT) MAGNESIUM 1.8 1.6 - 2.6 mg/dL [facility] Blood 01/25/2025 9:34 AM EDT 01/25/2025 9:44 AM EDT Liborio Monroy MD LAB BLOOD ORDERABLES Final Result Performing Organization Address [facility] Co de Phone Number [address] [address] * Lipase (01/25/2025 9:34 AM EDT) LIPASE 49 16 - 63 U/L [facility] Blood 01/25/2025 9:34 AM EDT 01/25/2025 9:44 AM EDT Liborio Monroy MD LAB BLOOD ORDERABLES Final Result Performing Organization Address [facility] Co de Phone Number [address] [address] * (ABNORMAL) Basic metabolic panel (01/25/2025 9:34 AM EDT) SODIUM 141 133 - 146 mmol/L [facility] CHLORIDE 105 96 - 108 mmol/L [facility] POTASSIUM 4.3 3.3 - 5.1 mmol/L [facility] CO2 26 21 - 35 mmol/L [facility] BUN 9 6 - 19 mg/dL [facility] CREATININE 0.60 0.5 - 1.5 mg/dL [facility] GLUCOSE 101(H) 70 - 99 mg/dL [facility] CALCIUM 9.2 8.4 - 10.3 mg/dL [facility] EGFR 104 >59 mL/min/1.7 3m2 [facility] Comment:Estimated glomerular filtration rate calculated using the CKD-EPI refit equation. ANION GAP 14 10 - 20 mmol/L [facility] Blood 01/25/2025 9:34 AM EDT 01/25/2025 9:44 AM EDT us Liborio Monroy MD LAB BLOOD ORDERABLES Final Result [facility] [address] [place] [address] * (ABNORMAL) CBC and differential (01/25/2025 7:58 AM EDT) WBC 11.89(H) 4.00 - 11.00 K/uL [facility] RBC 5.14 4.00 - 5.20 M/uL [facility] HGB 15.3 12.0 - 16.0 g/dL [facility] HCT 45.5 36.0 - 46.0 % [facility] PLT 271 150 - 450 K/uL [facility] MCV 88.5 80.0 - 100.0 fL [facility] MCH 29.8 27.0 - 31.0 pg [facility] MCHC 33.6 32.0 - 36.0 g/dL [facility] RDW 12.3 11.5 - 14.5 % [facility] MPV 9.7 8.4 - 12.0 fL [facility] NRBC 0.00 0.00 /100 WBCs [facility] ABSOLUTE NRBC 0.00 0.00 K/uL [facility] DIFF METHOD Auto [facility] NEUTS 43.8(L) 48.0 - 76.0 % [facility] LYMPHS 22.0 18.0 - 41.0 % [facility] MONOS 7.5 4.0 - 11.0 % [facility] EOS 25.9(H) 0.0 - 5.0 % [facility] Comment:AUTODIFF CONFIRMED BASOS 0.5 0.0 - 1.5 % [facility] Granulocytes, immature (%) 0.3 0.0 - 0.9 % [facility] ABSOLUTE NEUTS 5.21 1.92 - 7.60 K/uL [facility] ABSOLUTE LYMPHS 2.62 0.72 - 4.10 K/uL [facility] ABSOLUTE MONOS 0.89 0.16 - 1.10 K/uL [facility] ABSOLUTE EOS 3.08(H) 0.00 - 0.50 K/uL [facility] ABSOLUTE BASOS 0.06 0.00 - 0.15 K/uL [facility] Granulocytes, immature 0.03 0.00 - 0.09 K/uL [facility] Blood 01/25/2025 7:58 AM EDT 01/25/2025 8:06 AM EDT us Liborio Monroy MD LAB BLOOD ORDERABLES Final Result Performing Organization Address City/State/[facility] Co de Phone Number [address] [address] * Pap Smear (10/23/2017 12:00 AM EST) 10/23/2017 10/26/2017 12: 55 PM EDT Narrative SEE NARRATIVE - 10/29/2017 3:20 PM EDT [address] [address] Biometrics Instructor: Darlene Maciel MD BRICK MOLDER HAND Cytology Report FINAL DIAGNOSIS A. PAP SMEAR (SUREPATH) CE: SPECIMEN ADEQUACY: Satisfactory for evaluation; transformation zone absent/insufficient. INTERPRETATION: NEGATIVE FOR INTRAEPITHELIAL LESION OR MALIGNANCY. Electronically Signed Out By: JOHN Prescott(ASCP) Da Cisse The Pap test is a screening test primarily for squamous cancers and precursors and has associated false-negative and false-positive results. New technologies such as liquid-based preparations may decrease but will not eliminate all false-negative results. Regular sampling and follow-up of unexplained clinical signs and symptoms are recommended to minimize false negative results. PROCEDURES/ADDENDA HPV Testing (Requested) Ordered Date: 10/26/2017 HPV Test Negative for high risk human papillomavirus types 16, 18 and the Other high risk probe set (Includes 31, 33, 35, 39, 45, 51, 52, 56, 58, 59, 66, 68) by Vivienne cobase 4800 HR-HPV analysis. Clinical correlation is advised. This HPV test was performed at [facility], [address] [place] [address]. The accuracy and precision of this test has been verified in the Cytopathology laboratory of the [facility]. This test has not been cleared or approved by the U.S. Food and Drug Administration (FDA). CLINICAL HISTORY Date of Last Menstrual Period: Not Provided Menstrual History: No LMP given Contraceptive History: IUD Other Clinical Conditions: Screening Pap H/O ASCUS: SPECIMEN SOURCE A: PAP SMEAR (SUREPATH) CE Patient Name: LASHELL DOTSON : 1965 (Age: 52) Sex: F Institution: [facility] Location: [facility] Date of Collection: 10/23/2017 Date of Reported: 10/29/2017 15:20 Results to: Ailin Pedro MD Ailin Pedro MD CYTOLOGY ORDERABLES Final Result SEE NARRATIVE from Last 3 Months or Most Recently Relevant to Health Maintenance Insurance [facility] [address] [place] Care Teams Envelope Folding Machine Adjuster Relationship Specialty Start Date End Date Marely Spencer NP [address] [place] [address] PCP - General Nurse Practitioner 01/25/25 Tracey Duron MD [address] [place] [id number] [email or web address] Historical LMR Provider 06/03/17 Yung Canales MD [address] [place] [id number] Historical LMR Provider 06/03/17 Additional Source Comments The information contained in this document represents components of the legal health record. It is not the complete legal health record.[facility]
--- OUTSIDE RECORDS SUMMARY | 2025-03-23 07:30 | XMS_ITS | Patient Health Record ---
Author Organization [facility] Address [address] [place] [address] Care Team Providers Care Power System Engineer Name Role Phone Marely Valiente Primary Care Provi nela Kendall Anderson Unavailable [phone] Allergies Allergen (clinical drug ingredient) Drug/Non Drug Allergy documented on EMR Reaction Allergy Type Onset Date Status seasonal (uncoded) Unknown Allergy A ctive Results Component Value Reference Range Notes NM hepatobiliary w pharm Reviewed date:03/18/2025 06:28:00 PM Interpretation: Performing Lab: Notes/Report: [address] [address] Nuclear Medicine Report Signed Patient: Lashell Dotson MR#: [id number] : 1965 Acct:[id number] Age/Sex: 59 / F ADM Date: 03/17/25 Loc: [facility] Attending Dr: Kendall Vo MD Ordering Physician: Kendall Vo MD Date of Service: 03/17/25 Procedure(s): NM hepatobiliary w pharm Accession Number(s): [id number] cc: MARELY PLATA STEAM CONDITIONER OPERATOR; Kendall Vo MD EXAMINATION: UT BILIARY TRACT CLINICAL INFORMATION: Epigastric abdominal pain COMPARISON: CT from 05/06/2025 and ultrasound from January 20, 2025 Radioparhmaceutical: 5.0mCi technetium 99m labeled mebrofenin Other medications: 1.6mcg CCK infused IV over 30 minutes , one hour post injection of mebrofenin (a.k.a. Choletec) TECHNIQUE: Hepatobiliary scintigraphy was performed after the intravenous administration of technetium 99m labeled Choletec. Imaging was performed every 1 minutes for 60 minutes after which, CCK was infused IV over 30 minutes with imaging continuing for an additional 30minutes. Ejection fraction curve was generated with a region of interest placed over the gallbladder. FINDINGS: After Choletech injection, there is prompt uptake of radiotracer by the liver. Intrahepatic biliary filling was visible within 13 minutes and gallbladder filling was visible within 22minutes. Small bowel filling was noted within 13minutes. After CCK infusion, ejection fraction measured 91%. NM/NM hepatobiliary w pharm IMPRESSION: Unremarkable examination. Electronically signed by: Giovani Hernandez MD 03/17/2025 01:26 PM EDT RP Dictated By: Giovani Hernandez MD Signed By: <Electronically signed by Giovani Hernandez MD in OV> 03/17/25 1326 DD/ 1030 TD/TT: 03/17/25 1230 Termite Control Service Representative: Reason For Referral No Information Medications Medication [...] W/U Status Risk Notes Problem Epigastric pain (81592032) Epigastric abdominal pain (R10.13) Active confirmed Problem 519313690 Encounter for screening for malignant neoplasm of colon (Z12.11) Active confirmed Problem Diverticular disease of colon (840596530) Diverticulosis of large intestine without perforation or abscess without bleeding (K57.30) Active confirmed Problem Gastroesophageal reflux disease (423743813) Gastroesophageal reflux disease (K21.9) Active confirmed Problem [id number] Preprocedural examination (Z01.818) Active confirmed Problem 437781200 Family history o f colon cancer (Z80.0) Active confirmed Problem 06399443 Constipation, unspecified constipation type (K59.00) Active confirmed Problem Gastroesophageal reflux disease (170489914) GERD (gastroesophageal reflux disease) (K21.9) Active confirmed Problem Generalized abdominal pain (334162498) Abdominal pain, acute, generalized (R10.84) Active confirmed Vital Signs Temperature 97.5 degrees Fahrenheit 03/08/2025 Blood pressure diastolic 01 mm Hg 03/08/2025 Height 65.5 in 03/08/2025 Blood pressure systolic 001 mm Hg 03/08/2025 Weight 182.8 lbs 03/08/2025 BMI 29.95 kg/m2 03/08/2025 Encounters Encounter Location Date Provider Diagnosis [facility] [address] [place] [phone] 03/08/2025 Kendall Vo GERD (gastroesophage al reflux disease) K21.9 and Epigastric abdominal pain R10.13 [facility] [address] [place] [phone] 01/20/2025 Kendall Vo [facility] [address] [place] [phone] 01/23/2025 Kendall Vo Abdominal pain, acut e, generalized R10.84 [facility] [address] [place] [address] 02/03/2025 Kendall Vo [facility] [address] [place] [address] 03/18/2025 Kendall Vo Assessments Encounter Date Diagnosis (ICD [...] al reflux disease) (ICD-10 - K21.9) Overall, Lasehll appears to be doing very well at [...] Insured Coverage Start Date Coverage End Date [facility] [address] [place], [place] [id number] [phone] [id number] LASHELL DOTSON Self - patient is the insured 6 Medical (General) History Medical History History ICD Code Colonoscopy 05-08-2008 and 09/2002--neg fo r polyps--Int/Ext hemorrhoids Anxiety Denies ME,DM,CVA,Lung disease,renal dise ase C-spine disc disease Upper [...]
== END 2025-03-23 07:29 | disposition home or self-care (01) ==
LOC: HO.MAMMO 07:28
PROVIDERS: Visit Provider Nurse Practitioner Family
DX: Z12.31 Encounter for screening mammogram for malignant neoplasm of breast (principal)
CPT/HCPCS: 77063; 77067

== ENCOUNTER → 2025-03-23 07:45 | Outpatient (BNV) | payer BC, SELFPAY | PROVIDERS: Visit Provider Radiology Body Imaging | DX: Z12.31 Encounter for screening mammogram for malignant neoplasm of breast (principal) | CPT/HCPCS: 77063; 77067 ==